=== PATIENT | female | born 1945 | race Caucasian/White ===

== ENCOUNTER 2017-01-08 10:10 | Inpatient (IN) ==
[2017-01-08] MEDS ORDERED: DUONEB (A & A) INH ONE ×2 (10:46→10:47)
[2017-01-08] MEDS ORDERED: LABETALOL IV ONE ×2 (10:47→12:17)
[2017-01-08] MEDS ORDERED: NS 500 ML ONE (10:50)
[2017-01-08] MEDS ORDERED: NS 500 ML IV ONE (10:50)
--- NOTE | 2017-01-08 11:10 | EKG Report ---
Test Performed on : 01/08/2017 11:05:51 AM Test Reason : SOB Blood Pressure : / mmHG Vent. Rate : 108 BPM Atrial Rate : 108 BPM P-R Int : 130 ms QRS Dur : 072 ms QT Int : 340 ms P-R-T Axes : 080 -21 090 degrees QTc Int : 455 ms Sinus tachycardia. Right atrial enlargement Left ventricular hypertrophy with repolarization abnormality Cannot rule out Septal infarct , age undetermined Abnormal ECG No previous ECGs available Unconfirmed Result
[2017-01-08 11:18] LABS: ALLEN TEST NO; BE 5.3 mmoll (-3.0-3.0); BLOOD TYPE ARTERIAL; DRAW SITE R BRACHIAL; METHB 1.8 % (0.0-1.5); O2(CT) 17.4 mL/dL (15.0-23.0); PO2(98.6) 71 mmHg (60-100); SAMPLE BLOOD; SAO2 96.1 % (95.0-100.0); THB 13.6 g/dL (11.5-17.4); pH(98.6) 7.32 (7.35-7.45)
--- NOTE | 2017-01-08 11:19 | Diag Imaging Result Document ---
PROCEDURE NAME: CHEST-PORTABLE - 01/08/2017 PORTABLE CHEST X-RAY, 01/08/2017: COMPARISON: None. FINDINGS: The lungs are normally expanded and clear. Heart size and mediastinal contours are normal. No pneumothorax or pleural effusion. IMPRESSION: Negative exam.
[2017-01-08 11:20] LABS: MODALITY CANNULA
[2017-01-08 11:22] LABS: BASO% 0.1 % (0.0-0.8); HEMATOCRIT 42.2 % (37.0-47.0); HEMOGLOBIN 14.2 g/dL (12.0-16.0); IMM GRAN# 0.09 X1000 (0.0-0.04); IMM GRAN% 0.5 % (0.0-0.5); LYMPH# 0.37 X1000 (1.2-3.4); MANUAL DIFF NEEDED? NO; MCH 29.1 PG (27-31); MCHC 33.6 g/dL (33-37); MCV 86.5 FL (81-99); NEUT% 89.4 % (42.2-75.2); PLT 381 X1000 (130-400); RBC 4.88 XMIL (4.2-5.4)
[2017-01-08 11:22] LABS: PCO2(98.6) 65 mmHg (35-45)
[2017-01-08 11:27] LABS: INR 1.02; PROTIME 10.7 Seconds (9.2-11.7); PTT 24.6 Seconds (22.0-36.0)
[2017-01-08 11:47] LABS: URINE CULTURE NEEDED? NO; URINE MICRO REVIEW NEEDED? NO; URINE SOURCE CATH
[2017-01-08 11:50] LABS: BILIRUBIN URINE NEGATIVE (NEGATIVE); BLOOD URINE SMALL (NEGATIVE); COLOR YELLOW; GLUCOSE URINE 200 mg/dL (NEGATIVE); LEUKOCYTES URINE NEGATIVE (NEGATIVE); NITRITE URINE NEGATIVE (NEGATIVE); PROTEIN URINE 70 mg/dL (NEGATIVE); SP GRAVITY URINE 1.014; TURBIDITY URINE CLEAR (CLEAR); UR EPITHELIAL CELLS <10 /HPF (<10); URINE BACTERIA NEGATIVE /HPF; URINE RBC <10 /HPF (<10); URINE WBC <10 /HPF (<10); UROBILINOGEN URINE NORMAL (NORMAL)
[2017-01-08 11:51] LABS: AGAP 22; ALBUMIN 4.7 g/dL (3.5-5.0); ALKALINE PHOSPHATASE 100 U/L (32-104); BUN 13 mg/dL (8-22); CALCIUM 9.3 mg/dL (8.8-10.2); CHLORIDE 81 mmol/L (98-107); CK PROFILE 157 U/L (24-173); COSMO 267; GOT 34 U/L (10-30); GPT 34 U/L (10-36); MAGNESIUM 1.6 mg/dL (1.5-2.7); POTASSIUM 4.2 mmol/L (3.5-5.1); SODIUM 131 mmol/L (136-145); TCO2 28 mmol/L (25-35)
[2017-01-08 12:14] LABS: ALLEN TEST YES; BE 6.6 mmoll (-3.0-3.0); BLOOD TYPE ARTERIAL; DRAW SITE R RADIAL; METHB 1.8 % (0.0-1.5); O2(CT) 17.5 mL/dL (15.0-23.0); PCO2(98.6) 50 mmHg (35-45); PO2(98.6) 109 mmHg (60-100); SAMPLE BLOOD; SAO2 99.5 % (95.0-100.0); THB 13.1 g/dL (11.5-17.4); pH(98.6) 7.42 (7.35-7.45)
[2017-01-08 12:15] LABS: MODALITY BI PAP
[2017-01-08] MEDS ORDERED: ROCEPHIN 1 GM/NS 1 GM/50 ML IVPB IV ONE (12:18)
--- NOTE | 2017-01-08 13:23 | PROVIDER DOCUMENTATION ---
This chart was entered by Nai Pgua Scribe, acting as scribe for Amy Henderson MD. HPI-General Adult - General Chief Complaint: Fall Stated Complaint: FALL Time Seen by Provider: 01/08/17 10:25 Source: patient, EMS Allergies/Adverse Reactions: Patient Allergies Allergy/AdvReac Type Severity Reaction Status Date / Time No Known Allergies Allergy Verified 01/08/17 10:39 Home Medications: Home Medication List Medication Instructions Recorded Confirmed Last Taken Type Albuterol 2.5MG/Ipratrop 0.5MG 3 ml INH Q6H PRN PRN 01/08/17 01/08/17 01/07/17 08:30 History [Duoneb] Levothyroxine Sodium 50 mcg PO DAILY 01/08/17 01/08/17 01/07/17 08:30 History Verapamil HCl 240 mg PO BID 01/08/17 01/08/17 01/07/17 08:30 History - History of Present Illness -Gen Adult Nature of Presenting Problems: 71 y/o F presents to ED cc of fall. Pt states she had 2 bottles of wine last pm and fell in the floor . States she was unable to get up and laid in the floor all night until found this morn. Pt states she had no injury was just unable to get herself out of the floor. Pt did have urine incontinence. Pt is a COPD pt and laid in floor with no oxygen. Pt is very SOB due to no oxygen last night. Pt states she has some mild L posterior chest wall pain and aching all over. Pt is alert. Location of Pain/Injury: reports: chest (L posterior chest wall pain), generalized (aching) Pain Radiation: reports: no radiation Quality of Pain: reports: aching Severity: reports: mild Onset/Duration: reports: last night (when pt fell and laid in floor all night) Timing: reports: still present Context/Activities at Onset: reports: light activity Modifying Factors: improves with: rest, other (oxygen) Associated Symptoms: reports: shortness of breath, other (fall, L posterior chest wall pain). denies: chest pain, fever/chills, sinus congestion/drainage Similar Symptoms Previously?: No Recently seen or treated by another doctor?: No Review of Systems - Adult - REVIEW OF SYSTEMS - ADULT Constitutional: denies: chills, fever Ears, Nose, Mouth & Throat: denies: ear pain, throat pain Cardiovascular: reports: other (L posterior chest wall pain). denies: chest pain, heart murmur, palpitations Respiratory: reports: shortness of breath. denies: cough Gastrointestinal: denies: abdominal pain, diarrhea, nausea, vomiting Genitourinary: reports: incontinence. denies: discharge, frequency, urgency Musculoskeletal: denies: bone pain, back pain Neurological: denies: dizziness/vertigo, headache/migraines Past History - Adult - PAST MEDICAL HISTORY-ADULT Review of Records: reports: Old Records Reviewed, Nursing Assessment Review Cardiovascular: reports: HTN Respiratory: reports: COPD, other (home O2 req) Endocrine/Immune: reports: thyroid disorder - PRIOR SURGERIES/PROCEDURES Surgical/Procedure History: reports: other (ovary removal) - IMMUNIZATION STATUS Childhood Immunizations: See Nurse Assessment Flu Vaccine: See Nurse Assessment - SOCIAL HISTORY Smoking: greater than 1 pack/day Provider spent 3-5 mins advising pt. on dangers of tobacco.: Discussed manners to quit use, and f/u contacts for add'l counseling. Substance Use: alcohol Alcohol Use Frequency: every day (10 bottles on wine a wk and/or 6 packs of beer ) Physical Exam-General - PHYSICAL EXAM-ADULT Initial Vital Signs Reviewed: Yes - CONSTITUTIONAL General Appearance: alert, mild distress, thin - EYES Eyes: pink conjunctivae - HEAD, EARS, NOSE, MOUTH & THROAT HENMT: moist mucous membranes, normal ENT inspection - NECK Neck: full range of motion - RESPIRATORY Respiratory: decreased breath sounds (on bases), wheezing, increased rate - CARDIOVASCULAR Cardiovascular: normal peripheral pulses, tachycardia - GASTROINTESTINAL (ABDOMEN) Abdominal Exam: non tender, soft - MUSCULOSKELETAL Back Exam: normal inspection, no CVA tenderness, no vertebral tenderness, other (pt has full range of motion of all joints) - SKIN Integumentary: normal color, normal turgor, warm/dry. negative: abrasion(s) - NEUROLOGIC Neurologic: grossly normal, no motor/sensory deficits Progress - PLAN OF CARE/RESULTS Progress/Plan/Lab Results: Vital Signs - 8 hr 01/08/17 10:23 Temperature 97.4 F L Pulse Rate 107 H Respiratory Rate 26 H Blood Pressure 234/140 O2 Sat by Pulse Oximetry 95 Orders Category Date Time Status Cardiac Monitoring DIRECTED Care 01/08/17 10:45 Active Cardiac Monitoring DIRECTED Care 01/08/17 10:45 Active Oxygen Therapy- ED Nursing DIRECTED Care 01/08/17 10:45 Active Oxygen Therapy- ED Nursing DIRECTED Care 01/08/17 10:45 Active Saline Loc NOW Care 01/08/17 10:45 Active Saline Loc NOW Care 01/08/17 10:45 Active CHEST-PORTABLE [RAD] Stat Exams 01/08/17 10:47 Taken ABG [RESP] Routine Lab 01/08/17 10:47 Ordered ABG [RESP] Routine Lab 01/08/17 10:50 Ordered CBC WITH ELECTRONIC DIFF [HEME] Stat Lab 01/08/17 10:45 Uncollected CK PROFILE [SP CHEM] Stat Lab 01/08/17 10:45 Uncollected COMPREHENSIVE METABOLIC PANEL [CHEM] Stat Lab 01/08/17 10:45 Uncollected ETOH [ALCOHOL BLOOD] Stat Lab 01/08/17 10:53 Uncollected MAGNESIUM [CHEM] Stat Lab 01/08/17 10:45 Uncollected PRO B-NATRIURETIC PEPTIDE Stat Lab 01/08/17 10:45 Uncollected PROTIME WITH INR [COAG] Stat Lab 01/08/17 10:45 Uncollected PTT [COAG] Stat Lab 01/08/17 10:45 Uncollected TROPONIN T Stat Lab 01/08/17 10:45 Uncollected URINALYSIS W/POSS RFLX CULT [URINALYSIS] Stat Lab 01/08/17 10:47 Uncollected 0.9% Sodium Chloride Inj [Ns] 500 ml Med 01/08/17 10:50 Discontinued .ROUTE As Directed 0.9% Sodium Chloride Inj [Ns] 500 ml Med 01/08/17 10:50 Active IV 999 mls/hr Albuterol 2.5MG/Ipratrop 0.5MG [Duoneb (A & A)] Med 01/08/17 10:46 Discontinued 3 ml INH NOW ONE Albuterol 2.5MG/Ipratrop 0.5MG [Duoneb (A & A)] Med 01/08/17 10:47 Discontinued 3 ml INH NOW ONE Labetalol Med 01/08/17 10:47 Discontinued 10 mg IV NOW ONE Aerosol Treatments Routine Oth 01/08/17 10:46 Active Aerosol Treatments Routine Oth 01/08/17 10:48 Active Aerosol Treatments Stat Oth 01/08/17 10:46 Active Aerosol Treatments Stat Oth 01/08/17 10:48 Active EKG [EKG] Stat Ther 01/08/17 10:45 Ordered EKG [EKG] Stat Ther 01/08/17 10:45 Ordered PLAN: LABS , FLUIDS, BT, EKG , MONITOR PT PT WAS PLACED ON BYPAP Result Diagrams: 01/08/17 11:01 01/08/17 11:01 - REASSESSMENT Reassessment #1 Time Reassessed: 12:30 Status: unchanged (family and pt notified of going to be admitted.) - XRAY 1 XRAY: Bilateral XRAY Study: Chest Impression: Normal XRAY Interpretation: negative -radiologist - CONSULTS/PCP/HOSPITALIST Notification #1 *Consult/PCP/Hospitalist*: (hospitalist) Time Discussed: 12:52 Consult Disposition: Admit Departure - Departure Time of Disposition Decision: 11:50 DIAGNOSIS: COPD exacerbation Disposition: ADMITTED INPATIENT 09 Certified Medical Emergency: Emergent Condition: Stable This chart was documented by the indicated scribe, (Nai Puga, Gee) and accurately reflects the services I performed and decisions made by me, Amy Henderson MD, as attested by the provider's signature.
[2017-01-08 14:41] LABS: HEMOGLOBIN A1C 4.6 % (4.8-6.0)
[2017-01-08 15:16] LABS: MAGNESIUM 1.6 mg/dL (1.5-2.7)
[2017-01-08] MEDS: DUONEB (A & A) INH SCH ×3 (15:16→22:31)
[2017-01-08 15:35] LABS: FREE T4 1.87 ng/dL (0.93-1.70)
--- NOTE | 2017-01-08 16:00 | HISTORY AND PHYSICAL ---
PRIMARY CARE PHYSICIAN: None. CHIEF COMPLAINT: Found on the floor. HISTORY OF PRESENT ILLNESS: Mrs. Singh is a 71-year-old female with a history of COPD on 27/04 home O2, hypothyroidism and hypertension who apparently was drinking heavily yesterday. She reports drinking 2 bottles of wine and either passing out or falling on the floor, she is unclear which. She was unable to get up when she did come to but she remained in the floor for multiple hours. She was found by her brother who is also her landlord this morning at around 9 a.m. She denies any chest pain, but states that she went without her oxygen all night so she is quite short of breath. She denies any chills but reports subjective fever. She has no abdominal pain. She has not been throwing up. No congestion. When her brother found her he called 911 and the patient was sent here where she had labs and diagnostics done. Her chest x-ray did not show anything acute. Her lab data shows some mild hyponatremia and elevated liver function tests as well as leukocytosis with a white count of 18. Blood cultures were drawn and the patient was given a gram of Rocephin for COPD exacerbation. She is currently on BiPAP for hypoxemic respiratory failure and she will be going to the ICU for further treatment and evaluation. PAST MEDICAL HISTORY: 1. COPD on home O2. 2. Hypertension. 3. Hypothyroidism. 4. Nicotine dependence. 5. Alcohol dependence. SURGICAL HISTORY: x2 and unilateral oophorectomy. SOCIAL HISTORY: Patient smokes 6-8 cigarettes a day. This is down from a pack a day. She reports drinking 2 glasses of wine a day but yesterday for some unknown reason she states that she had 2 bottles of wine but she does not drink 2 bottles of wine daily on a regular basis. She denies illicit drug use. She is . She has 1 son who lives in [place]. FAMILY HISTORY: Noncontributory. REVIEW OF SYSTEMS: Fourteen-point review of systems is obtained and found to be negative with the exception of the HPI. ALLERGIES: No known drug allergies. HOME MEDICATIONS: Albuterol every 6 hours as needed. Levothyroxine 50 mcg daily. Verapamil 240 mg p.o. b.i.d. PHYSICAL EXAMINATION: VITAL SIGNS: Blood pressure is 167/110, heart rate is 94, respiratory rate 21, O2 saturation 97% on BiPAP, temperature is 97.4 degrees. GENERAL: This is a frail, cachectic and disheveled appearing 71-year-old, female, lying in hospital bed in no acute distress. NEUROLOGIC: The patient is awake. She is somewhat sleepy but opens her eyes to verbal stimulus and follows commands without any apparent focal deficits. HEENT: Head is atraumatic and normocephalic. Her right pupil is equal, round, and reactive to light. Her left pupil is round but more sluggish to light than the right. Oral mucosa is dry and her trachea is midline. Oropharynx is clear. Trachea is midline. CHEST: Coarse bilaterally with occasional expiratory wheezes and crackles. CV: Regular rate and rhythm. S1, S2 is noted. No murmurs. GI: Diffuse tenderness to palpation but no distention or rigidity. Bowel sounds are hypoactive. EXTREMITIES: Without edema, clubbing or cyanosis. BACK: C-spine and back: Cervical thoracic and lumbar spine is in alignment. There are no obvious deformities or stepoffs. She does have pain to her lumbar spine region and thoracic spine region. DIAGNOSTIC DATA: Chest x-ray does not show anything acute. EKG shows sinus tach without acute ST- T abnormalities. WBC 18.86, hemoglobin 14.2, hematocrit 42.2, platelet count 381,000. INR 1.02. Recent ABG on BiPAP pH 7.42, CO2 50, O2 109. Bicarb 30. Sodium 131, potassium 4.2, chloride 81, CO2 28, anion gap 22, BUN 13, creatinine 0.4. Glucose 179. Calcium 9.3, magnesium 1.6. Bilirubin 1.1. AST 34, ALT 34, alkaline phosphatase 100. Troponin CK is negative. ProBNP 450. Urinalysis shows 200 glucose, 20 ketones and small blood. Toxicology and alcohol level was 0. ASSESSMENT/PLAN: 1. Toxic encephalopathy/fall: Unclear to the exact nature of her fall. Given that her memory is poor, we are going to go ahead and check a head and C-spine CT as well as a lumbar x-ray. We will also check a CT of the chest, abdomen and pelvis. More than likely the patient had alcohol intoxication and subsequently passed out. She could also very well be hypoxic causing her to have an altered sensorium. We will continue to treat her for respiratory failure. We will follow all of the imaging and monitor her neuro status closely. 2. SIRS: Patient meets criteria with leukocytosis, tachycardia and tachypnea. Initial lactic acid on ABG was 2.3. We are going to recheck a serum lactic acid now. Blood cultures have been obtained and we are starting Rocephin for COPD exacerbation but she does not seem to have any overt nidus of infection at this time. We will follow her cultures and monitor closely. 3. Hypovolemic hyponatremia: We are going to check urine studies and continue IV fluids. 4. Chronic obstructive pulmonary disease exacerbation: Blood cultures have been obtained. We will continue antibiotics, breathing treatments and aggressive pulmonary toilet. We will also add some steroids. 5. Elevated liver function tests: Likely related to her alcohol but we will check a hepatitis panel and drug screen. Are also checking a CT of the abdomen. 6. Hypothyroidism: Continue her Synthroid and check thyroid function. 7. Alcohol and nicotine dependence: Patient has been highly advised to quit drinking and smoking. We will write a nicotine patch and monitor for withdrawal/DTs. Add p.r.n. Ativan for withdrawal symptoms. 8. Hypertensive urgency: Cardene drip has been added. We will titrate this to an adequate blood pressure and then switch over to p.o. medications. 9. DVT prophylaxis will be added with Lovenox pending a negative head CT and negative imaging. Further recommendations to follow. Dictated by KOJO Montoya for Sabrina Cruz MD cc: KOJO Montoya MD
--- NOTE | 2017-01-08 16:22 | ED EKG INTERP ---
This chart was entered by Nai Puga Scribe, acting as scribe for Amy Henderson MD. EKG Interpretation - EKG Time of EKG reading by physician:: 11:05 EKG Read and Signed by:: Amy Henderson EKG Interpretation (*Must complete 3 of following elements*): Abnormal Rate: 108 Rhythm: sinus tachy [place]: left (atrial enlargment) [place] Interval: normal ST Wave: normal Comments: cannot rule out septal infarct This chart was documented by the indicated scribe, (Nai Puga Scribe) and accurately reflects the services I performed and decisions made by me, Amy Henderson MD, as attested by the provider's signature.
--- NOTE | 2017-01-08 16:29 | Diag Imaging Result Document ---
PROCEDURE NAME: HEAD/C-SPINE W/O CONTRAST - 01/08/2017 CT OF THE HEAD WITHOUT CONTRAST: FINDINGS: There are minimal patchy lucencies in the white matter around the frontal horns. There is no evidence of bleed or mass effect. No other abnormal extra-axial fluid collections are present. The calvarium is intact. The paranasal sinuses are clear. IMPRESSION: No evidence of acute intracranial disease. Chronic microvascular white matter changes. CT OF THE CERVICAL SPINE: FINDINGS: There is some curvature of the cervical spine with convexity to the left. Severe hypertrophic facet disease is present at the C3-4, 4-5, and 5-6 levels on the right side and at the C4-5 level on the left. There is posterior osteophyte formation at the C7-T1 level. No prevertebral soft tissue swelling, fracture or subluxation is present. IMPRESSION: Facet arthropathy and degenerative disk disease. No evidence of acute bony disease.
--- NOTE | 2017-01-08 17:00 | Diag Imaging Result Document ---
PROCEDURE NAME: ELBOW COMPLETE RIGHT - 01/08/2017 PLAIN RADIOGRAPH OF THE RIGHT ELBOW 3 VIEWS: COMPARISON: None available. FINDINGS: There is a tiny osteophyte seen at the proximal ulna anteriorly on the lateral view. There is a small enthesophyte at the lateral epicondyle. There is no discrete fracture, dislocation, or intrinsic osseous lesion, otherwise. There is, however, a significant soft tissue edema about the elbow and suggestion of a joint effusion. IMPRESSION: Soft tissue edema and suggestion of an elbow joint effusion. No definite acute osseous abnormality.
--- NOTE | 2017-01-08 17:04 | Diag Imaging Result Document ---
PROCEDURE NAME: ABD/PELVIS/PULM ARTERIES - 01/08/2017 CT OF THE CHEST WITH INTRAVENOUS CONTRAST: FINDINGS: There are no filling defects in the pulmonary arteries. There is atherosclerotic calcification throughout the thoracic aorta. There is no evidence of dissection. The aorta is not distended. There is no evidence of significant adenopathy. There are coronary atherosclerotic calcifications. The left ventricle is slightly enlarged. No significant adenopathy is present. There are some mild emphysematous changes. There is mild consolidation present in the posterior left upper lobe, particularly around image 60. IMPRESSION: 1. COPD. 2. Left upper lobe pneumonia. CT OF THE ABDOMEN WITH INTRAVENOUS CONTRAST: FINDINGS: There are calcifications in the aorta and at the ostia of both renal arteries. There is no evidence of abdominal aortic aneurysm. The inferior mesenteric artery is not clearly patent. There are calcifications in the proximal superior mesenteric artery. The celiac and superior mesenteric artery are patent, however. The liver is normal in appearance. There are granulomata in the spleen. The adrenal glands appear somewhat hyperplastic, and there is a nodule arising from the left adrenal gland measuring 19 mm in diameter. This may represent an adenoma, but further evaluation with noncontrast study or MRI would be desirable. There are cysts in the kidneys. There is no evidence of hydronephrosis. The pancreas is somewhat atrophic in appearance. There is some gas and stool throughout the colon. This is particularly notable in the right colon. No evidence of significant adenopathy is present. There are no gallstones. CT OF THE PELVIS WITH INTRAVENOUS CONTRAST: FINDINGS: There is a Adams catheter in the bladder. There is gas and stool in the rectum. The uterus is displaced to the right of the pelvis, and there are multiple leiomyomata arising from the uterus. Some of these are densely calcified. One apparent such mass is present directly posterior to the external iliac vessels and measures 2.7 cm in diameter. The ovary is not dependently imaged. There is no evidence of free fluid. There is some deformity of the ischial pubic ramus on the left suggesting a previous fracture. The ischial tuberosity is somewhat fragmented. There are no previous studies. There is generalized osteopenia. There are degenerative disk changes in the lumbar spine. IMPRESSION: 1. Severe constipation. 2. Atherosclerosis. 3. Fibroid uterus 4. Left ischial pubic ramus fracture of uncertain age.
[2017-01-08] MEDS ORDERED: ZOFRAN IV PRN (17:05)
--- NOTE | 2017-01-08 17:05 | Diag Imaging Result Document ---
PROCEDURE NAME: LUMBAR SPINE 2-VIEWS - 01/08/2017 AP AND CROSS-TABLE LATERAL RADIOGRAPH OF THE LUMBAR SPINE 2 VIEWS: COMPARISON: None available. FINDINGS: The bones appear to be osteopenic. There is facet arthropathy at multiple lumbar levels. There are small marginal endplate osteophytes at multiple levels as well. There is mild loss of disk space height at L5-S1. There is mild dextrocurvature of the lumbar spine. There is no evidence of fracture, subluxation, or intrinsic osseous lesion, otherwise. There is aortic atherosclerotic calcification. IMPRESSION: Degenerative changes as described. No definite acute osseous abnormality by plain radiograph.
[2017-01-08 17:27] LABS: UR AMPHETAMINES QUAL NONE DETECTED (NONE DETECT); UR BARBITUATES QUAL NONE DETECTED (NONE DETECT); UR BENZODIAZEPIN QUAL NONE DETECTED (NONE DETECT); UR CANNABINOIDS QUAL NONE DETECTED (NONE DETECT); UR COCAINE QUAL NONE DETECTED (NONE DETECT); UR METHADONE QUAL NONE DETECTED (NONE DETECT); UR OPIATES QUAL NONE DETECTED (NONE DETECT); UR OXYCODONE QUAL NONE DETECTED (NONE DETECT); UR PCP QUAL NONE DETECTED (NONE DETECT)
[2017-01-08 17:28] LABS: UR CREAT RANDOM 46.1 mg/dL (11-20)
[2017-01-08] MEDS: M.V.I.-12 10 ML, FOLIC ACID 1 MG, MAGNESIUM SULFATE 1 GM, THIAMINE 100 MG in NS 1,000 ML IV SCH (17:59)
--- NOTE | 2017-01-08 18:05 | ECHO REPORT ---
ORDER DATE: 01/08/2017 INTERPRETING PHYSICIAN: Dr. Alvarado CLINICAL INDICATIONS: Piriz[age]gr[age]-old female, hypertensive urgency. M-MODE MEASUREMENTS: Right ventricle: 3.3 cm. Left ventricle end diastole: 3.3 cm. Left ventricle end systole: 2.5 cm. Posterior wall: 1.1 cm. Interventricular septum: 1.2 cm. Left atrium: 2.6 cm. Aortic root: 3.3 cm. SUMMARY OF 2-DIMENSIONAL IMAGING: Left ventricular function appears to be normal. Study was done off axis. The Doppler evaluation of mitral valve is limited because of that Diastolic function cannot be evaluated here. The left ventricular function is probably in the order of 60 to 65%. Aortic valve looks normal. Color flow mapping unremarkable. The pulmonic valve also appears to be grossly normal. Color flow mapping unremarkable. Tricuspid valve shows mild degree of regurgitation. Pulmonary pressure 33 mmHg. No pericardial effusion, masses, or thrombus. Epicardial fat pad noted. Inferior vena cava is not dilated. Clinical correlation is recommended. cc: MD Sabrina Glynn MD [facility]
[2017-01-08] MEDS: NICODERM PATCH TD SCH (18:07)
[2017-01-08] MEDS: SOLU-MEDROL IV SCH (18:07)
[2017-01-08] MEDS: CARDENE 20 MG/NS 20 MG/200 ML PIGGYBACK IV SCH (19:21)
[2017-01-08] MEDS: ZITHROMAX 500 MG/NS 500 MG/250 ML IVPB IV SCH (20:32)
[2017-01-08] MEDS: DULCOLAX PR SCH (20:37)
[2017-01-09] MEDS: SOLU-MEDROL IV SCH ×3 (01:56→17:00)
[2017-01-09] MEDS: CARDENE 20 MG/NS 20 MG/200 ML PIGGYBACK IV SCH (01:56)
[2017-01-09] MEDS: DUONEB (A & A) INH SCH ×5 (02:48→19:22)
[2017-01-09 04:09] LABS: ALLEN TEST YES; BE 6.5 mmoll (-3.0-3.0); BLOOD TYPE ARTERIAL; DRAW SITE R RADIAL; METHB 1.5 % (0.0-1.5); O2(CT) 14.5 mL/dL (15.0-23.0); PCO2(98.6) 45 mmHg (35-45); PO2(98.6) 78 mmHg (60-100); SAMPLE BLOOD; THB 10.9 g/dL (11.5-17.4); pH(98.6) 7.45 (7.35-7.45)
[2017-01-09 04:10] LABS: MODALITY CANNULA
[2017-01-09 05:42] LABS: HEMATOCRIT 32.1 % (37.0-47.0); HEMOGLOBIN 10.7 g/dL (12.0-16.0); IMM GRAN# 0.02 X1000 (0.0-0.04); IMM GRAN% 0.2 % (0.0-0.5); LYMPH# 0.18 X1000 (1.2-3.4); LYMPH% 2.1 % (20.5-51.1); MANUAL DIFF NEEDED? YES; MCHC 33.3 g/dL (33-37); MONO# 0.24 X1000 (0.11-0.59); MONO% 2.8 % (1.7-9.3); MPV 9.9 FL (7.4-10.4); NEUT% 94.9 % (42.2-75.2); PLT 270 X1000 (130-400); RBC 3.69 XMIL (4.2-5.4)
[2017-01-09 05:58] LABS: AGAP 12; BUN 21 mg/dL (8-22); CALCIUM 8.8 mg/dL (8.8-10.2); CHLORIDE 94 mmol/L (98-107); COSMO 273; SODIUM 134 mmol/L (136-145); TCO2 28 mmol/L (25-35)
[2017-01-09 06:40] LABS: BANDS 8 % (0-1); LYMPHS 4 % (21-51); MONO 4 % (1-9)
[2017-01-09] MEDS: MUCOMYST 20% INH SCH ×3 (07:38→19:22)
[2017-01-09] MEDS ORDERED: SYNTHROID PO SCH (09:00)
[2017-01-09] MEDS: NORVASC PO SCH ×2 (09:19→20:37)
[2017-01-09] MEDS: NICODERM PATCH TD SCH (09:20)
[2017-01-09] MEDS ORDERED: LABETALOL IV PRN (09:50)
[2017-01-09 10:57] LABS: HEPATITIS PROFILE ACUTE SEE COMMENTS
[2017-01-09] MEDS: ISOPTIN SR PO SCH ×2 (11:25→20:37)
[2017-01-09] MEDS: ROCEPHIN 1 GM/NS 1 GM/50 ML IVPB IV SCH (11:26)
[2017-01-09] MEDS ORDERED: BLISTEX MEDICATED BERRY LIP BALM TOP PRN (13:30)
--- NOTE | 2017-01-09 15:31 | CONSULTATION ---
DATE OF CONSULTATION: 01/09/2017 REASON FOR CONSULTATION: Pubic ramus fracture. HISTORY OF PRESENT ILLNESS: Ms. Singh is a 71-year-old, white female who apparently was drinking heavily yesterday, reporting that she was drinking 2 bottles of wine and either passing out or falling on the floor, she is unclear of which. She is unable to get up and she remained on the floor for multiple hours. She was found by her brother and she was brought to the emergency department and images were obtained which revealed a left ischial pubic ramus fracture. We were asked to further evaluate. PAST MEDICAL HISTORY: COPD. Hypertension. Hypothyroidism. Nicotine dependence. Alcohol dependence. SURGICAL HISTORY: x2 and unilateral oophorectomy. SOCIAL HISTORY: Patient smokes 6-8 cigarettes a day. She reports drinking 2 glasses of wine a day, but yesterday for some unknown reason she states she had two bottles of wine. She denies illicit drug use. FAMILY HISTORY: Noncontributory. REVIEW OF SYSTEMS: Ten point review of systems was obtained and found to be negative with the exception of the HPI. ALLERGIES: No known drug allergies. HOME MEDICATIONS: Albuterol every 6 hours as needed. Levothyroxine 50 mcg daily. Verapamil 240 mg p.o. b.i.d. PRIMARY CARE PROVIDER: None. PHYSICAL EXAMINATION: General: The patient is awake. She is lying in bed. She is alert and oriented and able to answer questions appropriately. Musculoskeletal: The patient had pain with movement of her hip and pain to palpation of her pelvis on the left side. Neurologic: Intact. She has good sensation in her bilateral extremities. Extremities: Brisk capillary refill and 2+ pedal pulse. ASSESSMENT: Left ischial pubic ramus fracture that is stable. PLANS: She is weightbearing as tolerated. Mobilize her with assistive devices as necessary and assist with symptomatic pain management. We recommend for her to go to a rehabilitation facility after discharge from the hospital and to have her follow up with Bay Harvey MD in about 1 month. Dictated by MINAL Dangelo for Jayy Harvey MD cc: MINAL Dangelo MD
[2017-01-09] MEDS: M.V.I.-12 10 ML, FOLIC ACID 1 MG, MAGNESIUM SULFATE 1 GM, THIAMINE 100 MG in NS 1,000 ML IV SCH (18:00)
--- NOTE | 2017-01-09 19:44 | PROGRESS NOTE ---
DATE: 01/09/2017 SUBJECTIVE: The patient states that she feels a lot better today. No acute events were noted overnight. The patient states that her shortness of breath is a little bit better today. OBJECTIVE: Vital Signs: Temperature 98 degrees, blood pressure 123/71, heart rate 97, respirations 16, O2 saturations 98% on 3 L nasal cannula. General: This is a chronically ill- appearing, elderly female, lying comfortably in bed, in no acute distress. Head : Normocephalic, atraumatic. Heart: S1, S2 normal. Regular rate and rhythm. Lungs: Mild expiratory wheezes. No crackles. No rales. Abdomen: Positive bowel sounds. Soft, nontender, nondistended. Extremities: No edema. No cyanosis. No calf tenderness. Neurologic: The patient is awake and alert. LABS: White blood cell count 8.6, hemoglobin 10, hematocrit 32, platelets 270, 000. Sodium 134, potassium 4, chloride 94, CO2 28, BUN 21, creatinine 0.3, glucose 131, calcium 8.8, troponin less than 0.01. ASSESSMENT AND PLAN: 1. Metabolic encephalopathy. This appears to have resolved. The patient appears to be back to her baseline. 2. Acute chronic obstructive pulmonary disease exacerbation. Continue on bronchodilator therapy, IV steroids and IV antibiotic therapy. The patient is on home O2. 3. Anemia of chronic disease. The patient's hemoglobin and hematocrit is stable. 4. Left upper lobe pneumonia. Continue on the current antibiotic regimen. We will add incentive spirometry. 5. Left ischial pubic ramus fracture. The Orthopedic service has been consulted for further recommendations. 6. Right elbow effusion. We will await records from the orthopedic surgeon. 7. Hypothyroidism. The tsh is low and the free t4 is high. Will hold the synthroid at this time. 8. Tobacco dependence. Continue on the NicoDerm patch. 9. Accelerated hypertension. The patient has been weaned off the Cardene drip. Her verapamil has been restarted. 10. Deep vein thrombosis prophylaxis. We will start the patient on Lovenox. cc: MD DIMAS Romo
[2017-01-09] MEDS: DULCOLAX PR SCH (20:36)
[2017-01-09] MEDS: ZITHROMAX 500 MG/NS 500 MG/250 ML IVPB IV SCH (20:36)
[2017-01-09] MEDS: LOVENOX SUBQ SCH (20:36)
[2017-01-09] MEDS: ATIVAN IV PRN (20:37)
[2017-01-10] MEDS: DUONEB (A & A) INH SCH ×6 (00:10→19:30)
[2017-01-10] MEDS: SOLU-MEDROL IV SCH ×3 (03:08→17:51)
[2017-01-10] MEDS: PROTONIX PO SCH (06:45)
[2017-01-10 06:56] LABS: HEMATOCRIT 31.9 % (37.0-47.0); HEMOGLOBIN 10.2 g/dL (12.0-16.0); IMM GRAN# 0.02 X1000 (0.0-0.04); IMM GRAN% 0.2 % (0.0-0.5); LYMPH# 0.17 X1000 (1.2-3.4); LYMPH% 1.3 % (20.5-51.1); MANUAL DIFF NEEDED? YES; MCH 28.5 PG (27-31); MCV 89.1 FL (81-99); MONO# 0.49 X1000 (0.11-0.59); MONO% 3.8 % (1.7-9.3); MPV 9.5 FL (7.4-10.4); NEUT% 94.7 % (42.2-75.2); PLT 268 X1000 (130-400); RBC 3.58 XMIL (4.2-5.4)
[2017-01-10 07:02] LABS: AGAP 9; BUN 31 mg/dL (8-22); CALCIUM 9.6 mg/dL (8.8-10.2); CHLORIDE 99 mmol/L (98-107); COSMO 283; POTASSIUM 3.8 mmol/L (3.5-5.1); SODIUM 138 mmol/L (136-145); TCO2 30 mmol/L (25-35)
[2017-01-10] MEDS: SPIRIVA INH SCH (07:21)
[2017-01-10] MEDS: MUCOMYST 20% INH SCH (07:21)
[2017-01-10 08:06] LABS: LYMPHS 9 % (21-51); MONO 6 % (1-9)
[2017-01-10] MEDS: ATIVAN IV PRN ×2 (11:36→17:52)
[2017-01-10] MEDS: NORVASC PO SCH ×2 (11:37→21:09)
[2017-01-10] MEDS: NICODERM PATCH TD SCH (11:38)
[2017-01-10] MEDS: ISOPTIN SR PO SCH ×2 (11:38→21:08)
[2017-01-10] MEDS: ROCEPHIN 1 GM/NS 1 GM/50 ML IVPB IV SCH (11:39)
--- NOTE | 2017-01-10 15:11 | PROGRESS NOTE ---
DATE: 01/10/2017 SUBJECTIVE: The patient states she feels okay this morning. She does have a productive cough. Her shortness of breath is about the same. OBJECTIVE: Vital signs: Temperature is 98.1, blood pressure 151/76, heart rate 95, respirations 16, O2 saturation is 98% on 3 L nasal cannula. General: This is an elderly female lying comfortably in bed, in no acute distress. Head normocephalic and atraumatic. Heart: S1 and S2 normal. Regular rate and rhythm. Lungs: Coarse breath sounds bilaterally with mild expiratory wheezes. Abdomen: Positive bowel sounds. Soft, nontender and nondistended. Extremities: No edema. No cyanosis. No calf tenderness. Neurologic: The patient is alert and oriented x3. DIAGNOSTIC DATA: White blood cell count is 12, hemoglobin 10, hematocrit 31, platelets 268. Sodium is 138, potassium 3.8, chloride 99, CO2 is 30, BUN is 31, creatinine 0.3, glucose 103. ASSESSMENT AND PLAN: 1. Acute chronic obstructive pulmonary disease exacerbation. Continue on IV steroids, bronchodilator therapy and IV antibiotics. 2. Metabolic encephalopathy, resolved. 3. Anemia of chronic disease. Stable. 4. Left upper lobe pneumonia. Continue on IV antibiotic therapy plus bronchodilator therapy and incentive spirometer. 5. Left ischial pubic ramus fracture. Management as per the orthopedic surgeon. 6. Hypothyroidism. The patient's TSH is low, and the free T4 is high. We will hold the Synthroid at this time. 7. Tobacco dependence. Continue on the NicoDerm patch. 8. Hypertension. Controlled. Continue on the current antihypertensive therapy. 9. DVT prophylaxis. Continue on Lovenox. 10.We will discontinue the patient's Adams catheter. Continue with physical therapy. cc: Sabrina Cruz MD
[2017-01-10] MEDS: M.V.I.-12 10 ML, FOLIC ACID 1 MG, MAGNESIUM SULFATE 1 GM, THIAMINE 100 MG in NS 1,000 ML IV SCH (17:52)
[2017-01-10] MEDS: ZITHROMAX 500 MG/NS 500 MG/250 ML IVPB IV SCH (21:08)
[2017-01-10] MEDS: LOVENOX SUBQ SCH (21:09)
[2017-01-10] MEDS: MIRALAX PO SCH (21:09)
[2017-01-10] MEDS: DULCOLAX PR SCH (21:09)
[2017-01-11] MEDS: SOLU-MEDROL IV SCH ×3 (00:43→17:55)
[2017-01-11] MEDS: PROTONIX PO SCH (06:00)
[2017-01-11] MEDS: DUONEB (A & A) INH SCH ×6 (06:03→23:42)
[2017-01-11 07:03] LABS: AGAP 11; BUN 27 mg/dL (8-22); CALCIUM 9.1 mg/dL (8.8-10.2); CHLORIDE 100 mmol/L (98-107); COSMO 284; POTASSIUM 3.7 mmol/L (3.5-5.1); SODIUM 139 mmol/L (136-145); TCO2 28 mmol/L (25-35)
[2017-01-11] MEDS: MUCOMYST 20% INH SCH ×2 (07:25→19:36)
[2017-01-11] MEDS: SPIRIVA INH SCH (07:25)
[2017-01-11 07:26] LABS: FREE T4 0.7 ng/dL (0.93-1.70)
[2017-01-11] MEDS: ATIVAN IV PRN ×2 (07:34→18:10)
[2017-01-11 09:29] LABS: ALLEN TEST YES; BE 8.5 mmoll (-3.0-3.0); BLOOD TYPE ARTERIAL; DRAW SITE R RADIAL; METHB 1.3 % (0.0-1.5); O2(CT) 13.2 mL/dL (15.0-23.0); PO2(98.6) 68 mmHg (60-100); SAMPLE BLOOD; SAO2 97.5 % (95.0-100.0); pH(98.6) 7.37 (7.35-7.45)
[2017-01-11 09:30] LABS: MODALITY CANNULA
[2017-01-11 09:33] LABS: PCO2(98.6) 61 mmHg (35-45)
[2017-01-11] MEDS: ISOPTIN SR PO SCH ×2 (10:35→19:59)
[2017-01-11] MEDS: NICODERM PATCH TD SCH (10:35)
[2017-01-11] MEDS: MIRALAX PO SCH ×2 (10:35→19:59)
[2017-01-11] MEDS: NORVASC PO SCH ×2 (10:35→20:00)
[2017-01-11] MEDS: ROCEPHIN 1 GM/NS 1 GM/50 ML IVPB IV SCH (14:42)
--- NOTE | 2017-01-11 15:27 | PROGRESS NOTE ---
DATE: 01/11/2017 SUBJECTIVE: The patient was noted to be sleepy and lethargic this morning. An ABG was done that revealed a pCO2 of 61. OBJECTIVE: Vital Signs: Temperature 98.3 degrees, blood pressure 129/72, heart rate 102, respirations 16, O2 saturations 95% on 3 L nasal cannula. General: This is an elderly female lying in bed in no acute distress. Head: Normocephalic, atraumatic. Heart: S1, S2. Normal. Regular rate and rhythm. Lungs: Equal air entry bilaterally. No crackles. No rales. Abdomen: Positive bowel sounds. Soft, nontender, nondistended. Extremities: No edema. No cyanosis. No calf tenderness. Neurologic: The patient is lethargic, but will awaken when her name is called. She is able to move all 4 extremities. LABORATORY: ABG, pH of 7.37, PCO2 61, PO2 68, bicarb 31, sodium 139, potassium 3.7, chloride 100, CO2 28, BUN 27, creatinine 0.3, glucose 129. ASSESSMENT AND PLAN: 1. Acute chronic obstructive pulmonary disease exacerbation with hypercapnia. We will place the patient on BiPAP. Continue on IV steroids, bronchodilator therapy and IV antibiotics. 2. Metabolic encephalopathy. The patient's pCO2 was elevated at 60. We will continue to monitor for improvement. 3. Anemia of chronic disease. Stable. 4. Left upper lobe pneumonia. Continue on IV antibiotic therapy, plus bronchodilator therapy. 5. Left ischial pubic ramus fracture. Management as per the orthopedic surgeon. 6. Hypothyroidism. The patient's thyroid stimulating hormones and free T4 are both low. We will continue to hold the Synthroid at this time. 7. Tobacco dependence. The patient has been counseled about smoking cessation. Continue on the NicoDerm patch. 8. Hypertension. Controlled. 9. Deep vein thrombosis prophylaxis. Continue on Lovenox. cc: Sabrina Cruz MD
[2017-01-11] MEDS: M.V.I.-12 10 ML, FOLIC ACID 1 MG, MAGNESIUM SULFATE 1 GM, THIAMINE 100 MG in NS 1,000 ML IV SCH (17:55)
[2017-01-11] MEDS: ZITHROMAX 500 MG/NS 500 MG/250 ML IVPB IV SCH (19:59)
[2017-01-11] MEDS: LOVENOX SUBQ SCH (20:00)
[2017-01-11] MEDS: DULCOLAX PR SCH (20:00)
[2017-01-12] MEDS: SOLU-MEDROL IV SCH ×3 (00:42→18:16)
[2017-01-12] MEDS: ATIVAN IV PRN ×2 (02:14→16:55)
[2017-01-12] MEDS: DUONEB (A & A) INH SCH ×6 (03:00→22:50)
[2017-01-12 05:01] LABS: ALLEN TEST YES; BE 9.7 mmoll (-3.0-3.0); BLOOD TYPE ARTERIAL; DRAW SITE R RADIAL; METHB 1.8 % (0.0-1.5); O2(CT) 14.2 mL/dL (15.0-23.0); PO2(98.6) 115 mmHg (60-100); SAMPLE BLOOD; SAO2 99.4 % (95.0-100.0); THB 10.4 g/dL (11.5-17.4); pH(98.6) 7.44 (7.35-7.45)
[2017-01-12 05:02] LABS: MODALITY BI PAP
[2017-01-12 05:11] LABS: PCO2(98.6) 52 mmHg (35-45)
[2017-01-12 06:26] LABS: HEMATOCRIT 31.7 % (37.0-47.0); MCHC 31.5 g/dL (33-37); MCV 91.9 FL (81-99); MPV 9.6 FL (7.4-10.4); RBC 3.45 XMIL (4.2-5.4)
[2017-01-12 06:30] LABS: AGAP 7; BUN 22 mg/dL (8-22); CALCIUM 8.8 mg/dL (8.8-10.2); CHLORIDE 99 mmol/L (98-107); COSMO 281; POTASSIUM 3.2 mmol/L (3.5-5.1); SODIUM 139 mmol/L (136-145); TCO2 33 mmol/L (25-35)
[2017-01-12] MEDS: PROTONIX PO SCH (06:49)
[2017-01-12] MEDS: SPIRIVA INH SCH (07:34)
[2017-01-12] MEDS: MUCOMYST 20% INH SCH ×2 (07:35→19:40)
--- NOTE | 2017-01-12 09:29 | Diag Imaging Result Document ---
PROCEDURE NAME: CHEST-PORTABLE - 01/12/2017 AP PORTABLE CHEST AT 0810 HOURS: FINDINGS: There is a right pleural effusion which has increased since 01/08/2017. The inspiration is generally less optimal than on the previous study. Otherwise, there has been no significant change. IMPRESSION: Right pleural effusion.
[2017-01-12] MEDS: ISOPTIN SR PO SCH ×2 (10:46→20:16)
[2017-01-12] MEDS: NORVASC PO SCH ×2 (10:46→20:16)
[2017-01-12] MEDS: NICODERM PATCH TD SCH (10:46)
[2017-01-12] MEDS: MIRALAX PO SCH ×2 (10:46→20:16)
[2017-01-12] MEDS: ROCEPHIN 1 GM/NS 1 GM/50 ML IVPB IV SCH (12:55)
[2017-01-12] MEDS ORDERED: LASIX IV ONE (16:05)
[2017-01-12] MEDS ORDERED: LASIX IV SCH (16:15)
--- NOTE | 2017-01-12 16:37 | PROGRESS NOTE ---
DATE: 01/12/2017 SUBJECTIVE: The patient has no focal complaints. Very weak, just lying in bed. No other major complaints. OBJECTIVE: Vital Signs: Blood pressure 155/80, heart rate 92, respiratory 18, temperature 98.4 degrees. 99% on 2 L. General: A well-developed female, in no distress. Cardiovascular: Regular rate and rhythm. Pulmonary: No wheezes. Diminished at the bases. Gastrointestinal: Abdomen soft, nontender, somewhat distended. Bowel sounds are positive. Extremities: No clubbing or cyanosis. Lymphatics: No peripheral edema. LABORATORY DATA: Was pretty much unremarkable. White count normal. Hemoglobin and hematocrit 10 and 31, platelets 247,000. White count, 7.5. Chemistries: Potassium 3.2. She is hypothyroid. PROBLEM LIST: 1. Chronic obstructive pulmonary disease exacerbation. We will continue breathing treatments. I think we could probably transition her. I am going to wean her steroids because I think her bronchospasm is better. We are weaning BiPAP. 2. Acute respiratory failure. Weaning BiPAP and continue to follow very closely. 3. Hypokalemia. We are going to supplements and follow. 4. Right pleural effusion. She does have an infiltrate there. I am not sure if this is related to just poor or severe protein calorie malnutrition and a low albumin state. I am going to give her some Lasix and we will repeat her chest x-ray tomorrow. Work on trying to get her up and around a little bit if we can. She is very debilitated at baseline. 5. Anemia. This appears to be stable. 6. Encephalopathy slowly improving. 7. Pubic rami fracture. Continue pain control. She will likely need PT. DISPOSITION: She may end up needing rehab. She is just very clinically deteriorated and she has a pelvic fracture. So, we will continue to monitor this. cc: Gerson Santana MD
[2017-01-12] MEDS: LOVENOX SUBQ SCH (20:16)
[2017-01-12] MEDS: DULCOLAX PR SCH (20:17)
[2017-01-13] MEDS: DUONEB (A & A) INH SCH ×6 (02:21→23:07)
[2017-01-13] MEDS: SOLU-MEDROL IV SCH ×3 (03:14→20:54)
[2017-01-13] MEDS: SYNTHROID PO SCH (06:17)
[2017-01-13] MEDS: PROTONIX PO SCH (06:17)
[2017-01-13 07:06] LABS: HEMATOCRIT 37.2 % (37.0-47.0); HEMOGLOBIN 11.9 g/dL (12.0-16.0); MCV 90.5 FL (81-99); MPV 9.5 FL (7.4-10.4); RBC 4.11 XMIL (4.2-5.4)
[2017-01-13 07:17] LABS: AGAP 7; BUN 30 mg/dL (8-22); CALCIUM 9.4 mg/dL (8.8-10.2); CHLORIDE 95 mmol/L (98-107); COSMO 288; MAGNESIUM 1.8 mg/dL (1.5-2.7); POTASSIUM 2.8 mmol/L (3.5-5.1); SODIUM 141 mmol/L (136-145); TCO2 39 mmol/L (25-35)
[2017-01-13] MEDS ORDERED: SODIUM CHLORIDE 0.9% 10 ML ONE (07:29)
[2017-01-13] MEDS: MUCOMYST 20% INH SCH ×2 (07:31→19:38)
[2017-01-13] MEDS: ATIVAN IV PRN (07:37)
[2017-01-13] MEDS: MIRALAX PO SCH ×2 (09:08→20:54)
[2017-01-13] MEDS: NICODERM PATCH TD SCH (09:08)
[2017-01-13] MEDS: ISOPTIN SR PO SCH ×2 (09:09→20:54)
[2017-01-13] MEDS: NORVASC PO SCH ×2 (09:09→20:55)
[2017-01-13] MEDS: ZITHROMAX PO SCH (09:09)
--- NOTE | 2017-01-13 09:59 | Diag Imaging Result Document ---
PROCEDURE NAME: CHEST-PORTABLE - 01/13/2017 PORTABLE CHEST X-RAY: COMPARISON: 01/12/2017. FINDINGS: Stable patchy bibasilar infiltrates. There is a probable small right pleural effusion. No new infiltrates. Heart size remains top normal. IMPRESSION: No change from prior.
[2017-01-13] MEDS: ROCEPHIN 1 GM/NS 1 GM/50 ML IVPB IV SCH (11:21)
[2017-01-13] MEDS ORDERED: KLOR-CON PO ONE (13:56)
--- NOTE | 2017-01-13 14:44 | PROGRESS NOTE ---
DATE: 01/13/2017 SUBJECTIVE: Patient has no focal complaints. She is very lethargic but she got Ativan early this morning. OBJECTIVE: Vital signs: Blood pressure 129/73, heart rate of 87, respiratory 16, temperature 98.2, 98% on 2 L. Cardiovascular: Regular rate and rhythm. Pulmonary: Bilateral breath sounds. Clear to auscultation. GI: Soft, nontender, nondistended. Bowel sounds are positive. LABORATORY DATA: White count 11.3, hemoglobin and hematocrit 11 and 37, platelets 283,000. Chemistries. Potassium is 2.8 with a BUN of 30. PROBLEM LIST: 1. Chronic obstructive pulmonary disease exacerbation. Clinically she appears like she is stabilizing. Her breathing is overall better. She is tolerating BiPAP at night. I am going to wean her steroids and we will follow clinically. 2. Hypercapnia is stable. We will wean BiPAP and follow. 3. Hypokalemia. We will supplement, likely related to her diuretics. 4. Right pleural effusion. Her chest x-ray today seems to be stable. She has a small effusion though is not really worse. I think she is stabilizing. We will progress with rehab soon. 5. Encephalopathy. May be related to chronic alcohol use, chronic hypoxia. We will continue to follow. Anticipate discharge in the next 1-2 days pending the rest of her workup. cc: Gerson Santana MD
[2017-01-13] MEDS ORDERED: NS 500 ML ONE (14:48)
[2017-01-13] MEDS: POTASSIUM CHLORIDE 20 MEQ/SWI 20 MEQ/100 ML IVPB IV SCH ×2 (15:34→17:32)
[2017-01-13] MEDS: DULCOLAX PR SCH (20:54)
[2017-01-13] MEDS: LOVENOX SUBQ SCH ×2 (20:55→21:30)
[2017-01-13] MEDS: KLONOPIN PO PRN (20:55)
[2017-01-14] MEDS: DUONEB (A & A) INH SCH ×6 (03:32→23:07)
[2017-01-14] MEDS: SYNTHROID PO SCH (06:18)
[2017-01-14] MEDS: PROTONIX PO SCH (06:18)
[2017-01-14 06:32] LABS: HEMATOCRIT 36.7 % (37.0-47.0); HEMOGLOBIN 11.8 g/dL (12.0-16.0); MCH 29.2 PG (27-31); MCHC 32.2 g/dL (33-37); MCV 90.8 FL (81-99); MPV 9.5 FL (7.4-10.4); RBC 4.04 XMIL (4.2-5.4)
[2017-01-14 07:08] LABS: AGAP 9; BUN 30 mg/dL (8-22); CALCIUM 9.3 mg/dL (8.8-10.2); CHLORIDE 98 mmol/L (98-107); COSMO 286; MAGNESIUM 1.8 mg/dL (1.5-2.7); SODIUM 140 mmol/L (136-145); TCO2 33 mmol/L (25-35)
[2017-01-14 07:25] LABS: POTASSIUM 4.5 mmol/L (3.5-5.1)
[2017-01-14] MEDS: MUCOMYST 20% INH SCH ×2 (07:48→19:32)
[2017-01-14] MEDS: SPIRIVA INH SCH (07:48)
[2017-01-14] MEDS: NORVASC PO SCH ×2 (08:18→20:25)
[2017-01-14] MEDS: MIRALAX PO SCH ×2 (08:18→20:25)
[2017-01-14] MEDS: ISOPTIN SR PO SCH ×2 (08:18→20:25)
[2017-01-14] MEDS: SOLU-MEDROL IV SCH (08:18)
[2017-01-14] MEDS: NICODERM PATCH TD SCH (08:18)
[2017-01-14] MEDS: ZITHROMAX PO SCH (08:19)
[2017-01-14] MEDS: KLONOPIN PO PRN ×2 (12:15→19:19)
[2017-01-14] MEDS: ROCEPHIN 1 GM/NS 1 GM/50 ML IVPB IV SCH (12:15)
--- NOTE | 2017-01-14 15:53 | PROGRESS NOTE ---
DATE: 01/14/2017 SUBJECTIVE: Patient has no focal complaints. She looks a little bit more awake today. Not quite as confused. Overall seems much more appropriate but still very weak. OBJECTIVE: Vital signs: Blood pressure is 132/68, heart rate of 87, respiratory 18, temperature 98.1 degrees, 96% on 3 L. Cardiovascular: Regular rate and rhythm. Pulmonary: Bilateral breath sounds. Clear to auscultation. GI: Was soft, nontender, nondistended. Bowel sounds are positive. Extremities: No clubbing or cyanosis. Lymphatics: No peripheral edema. Neurological: Nonfocal. LABORATORY DATA: White count of 12, hemoglobin and hematocrit 11 and 36. Platelets 287,000. Chemistries look okay including Mag and phosphorus. PROBLEMS: 1. Chronic obstructive pulmonary disease exacerbation is slowly improving. We will wean steroids. 2. Hypercapnic respiratory failure. She is tolerating nocturnal BiPAP. 3. Hypokalemia. This appears to be resolving. 4. Encephalopathy likely multifactorial. She is slowly improving as far as that is concerned. DISPOSITION: Plan to pursue inpatient rehab in the next 1-2 days. We will continue to monitor. cc: Gerson Santana MD
[2017-01-14] MEDS: LOVENOX SUBQ SCH (20:25)
[2017-01-15] MEDS: DUONEB (A & A) INH SCH ×6 (03:00→23:16)
[2017-01-15] MEDS: PROTONIX PO SCH (06:16)
[2017-01-15] MEDS: SYNTHROID PO SCH (06:16)
[2017-01-15 06:34] LABS: HEMATOCRIT 40.7 % (37.0-47.0); HEMOGLOBIN 13.2 g/dL (12.0-16.0); MCH 29.3 PG (27-31); MCHC 32.4 g/dL (33-37); MCV 90.2 FL (81-99); MPV 9.6 FL (7.4-10.4); RBC 4.51 XMIL (4.2-5.4)
[2017-01-15 06:48] LABS: AGAP 9; BUN 29 mg/dL (8-22); CALCIUM 9.3 mg/dL (8.8-10.2); CHLORIDE 95 mmol/L (98-107); COSMO 281; POTASSIUM 4.2 mmol/L (3.5-5.1); SODIUM 138 mmol/L (136-145); TCO2 34 mmol/L (25-35)
[2017-01-15] MEDS: SPIRIVA INH SCH (07:41)
[2017-01-15] MEDS: MUCOMYST 20% INH SCH ×2 (07:41→19:05)
[2017-01-15] MEDS ORDERED: SOLU-MEDROL IV SCH (09:00)
[2017-01-15] MEDS: NICODERM PATCH TD SCH (09:13)
[2017-01-15] MEDS: ISOPTIN SR PO SCH ×2 (09:13→21:14)
[2017-01-15] MEDS: MIRALAX PO SCH ×2 (09:13→21:55)
[2017-01-15] MEDS: NORVASC PO SCH ×2 (09:13→21:15)
[2017-01-15] MEDS: ZITHROMAX PO SCH (09:14)
[2017-01-15] MEDS: ROCEPHIN 1 GM/NS 1 GM/50 ML IVPB IV SCH (11:29)
[2017-01-15] MEDS: KLONOPIN PO PRN ×2 (11:32→21:15)
[2017-01-15] MEDS ORDERED: LEVAQUIN 500 MG/D5W 500 MG/100 ML IVPB IV SCH ×2 (19:00→20:00)
--- NOTE | 2017-01-15 20:27 | PROGRESS NOTE ---
DATE: 01/15/2017 SUBJECTIVE: The patient has no focal complaints. OBJECTIVE: Vital Signs: Blood pressure 113/72, heart rate 91, respiratory rate 16, temperature 97.6 degrees, 98% on 3 L. Cardiovascular: Regular rate and rhythm. Pulmonary: Bilateral breath sounds. Clear to auscultation. Gastrointestinal: Soft, nontender, nondistended. Bowel sounds are positive. Extremities: No clubbing or cyanosis. Lymphatic Examination: No peripheral edema. Neurological examination: Nonfocal. LABORATORY DATA: White count is still very elevated up to 18,000. Not really a clear source. She is on steroids. PROBLEM LIST: 1. Chronic obstructive pulmonary disease exacerbation. Clinically she seems to be improved. I am just going to stop her steroids to avoid with their neutrophilia. 2. Hypercapnic respiratory failure. She is stable on BiPAP. 3. Leukocytosis. I will add Levaquin, check a urine on her, repeat her chest x-ray tomorrow and follow. 4. Hypertension. We will continue to monitor closely. DISPOSITION: I think patient really needs rehabilitation. She can barely get out of bed but she is refusing rehabilitation. I am not really completely sure she understands the gravity of her situation. She had a dizzy sensation that resolved within 1 minute of seated rest. She used a front wheel walker and moved 2 feet. I just do not feel like she is going to be safe to go home. She does not have any family member that she directly lives with. She has brothers and a sister- in-law. We discussed with the family about treatment options. She is adamant about going home, however, again I do not think it is a safe plan of discharge although again we cannot force her to go, and at this point she has new leukocytosis which we need to better characterize . cc: Gerson Santana MD
[2017-01-15] MEDS: LOVENOX SUBQ SCH (21:15)
[2017-01-16] MEDS: DUONEB (A & A) INH SCH ×4 (03:10→16:00)
[2017-01-16 05:50] LABS: HEMATOCRIT 37.3 % (37.0-47.0); MCH 29.1 PG (27-31); MCHC 32.2 g/dL (33-37); MCV 90.5 FL (81-99); MPV 9.4 FL (7.4-10.4); RBC 4.12 XMIL (4.2-5.4)
[2017-01-16 06:04] LABS: URINE CULTURE NEEDED? NO; URINE MICRO REVIEW NEEDED? NO; URINE SOURCE CLEAN CATCH
[2017-01-16] MEDS: SYNTHROID PO SCH (06:14)
[2017-01-16] MEDS: PROTONIX PO SCH (06:14)
[2017-01-16 06:15] LABS: BILIRUBIN URINE NEGATIVE (NEGATIVE); BLOOD URINE NEGATIVE (NEGATIVE); COLOR YELLOW; GLUCOSE URINE NEGATIVE (NEGATIVE); LEUKOCYTES URINE NEGATIVE (NEGATIVE); NITRITE URINE NEGATIVE (NEGATIVE); PH URINE 6.5; PROTEIN URINE TRACE mg/dL (NEGATIVE); SP GRAVITY URINE 1.019; TURBIDITY URINE CLEAR (CLEAR); UROBILINOGEN URINE NORMAL (NORMAL)
[2017-01-16 06:17] LABS: UR EPITHELIAL CELLS <10 /HPF (<10); URINE BACTERIA NEGATIVE /HPF; URINE RBC <10 /HPF (<10); URINE WBC <10 /HPF (<10)
[2017-01-16 06:40] LABS: AGAP 6; BUN 29 mg/dL (8-22); CALCIUM 9.1 mg/dL (8.8-10.2); CHLORIDE 98 mmol/L (98-107); COSMO 282; SODIUM 139 mmol/L (136-145); TCO2 35 mmol/L (25-35)
[2017-01-16] MEDS: SPIRIVA INH SCH (08:09)
[2017-01-16] MEDS: MUCOMYST 20% INH SCH (08:09)
--- NOTE | 2017-01-16 08:22 | Diag Imaging Result Document ---
PROCEDURE NAME: CHEST-2 VIEWS - 01/16/2017 CHEST X-RAY, 2 VIEWS: COMPARISON: 01/13/2017. FINDINGS: Heart size remains top normal and stable from prior. There is a small right and trace left pleural effusion stable from prior. There is improvement in the patchy bibasilar infiltrates. No new infiltrates. IMPRESSION: Improvement in the subtle bibasilar infiltrates.
[2017-01-16] MEDS: NICODERM PATCH TD SCH (11:43)
[2017-01-16] MEDS: NORVASC PO SCH ×2 (11:43→11:47)
[2017-01-16] MEDS: ISOPTIN SR PO SCH ×2 (11:43→11:46)
[2017-01-16] MEDS: MIRALAX PO SCH (11:44)
[2017-01-16] MEDS: ROCEPHIN 1 GM/NS 1 GM/50 ML IVPB IV SCH (11:48)
[2017-01-16] MEDS: KLONOPIN PO PRN (12:19)
--- NOTE | 2017-01-16 14:31 | DISCHARGE SUMMARY ---
ADMISSION DATE: 01/08/2017 DISCHARGE DATE: 01/16/2017 CONSULTATION: Dr. Jayy Harvey with Orthopedics. PERTINENT PROCEDURES: 1. Abdomen and pelvis CT showed COPD and left upper lobe pneumonia, severe constipation, atherosclerosis, fibroid uterus, left ischial pubic ramus fracture of uncertain age. 2. Elbow x-ray showed soft tissue edema suggesting of an elbow joint effusion. No definite acute osseous abnormality. DISCHARGE DIAGNOSES: 1. Acute chronic obstructive pulmonary disease exacerbation with hypercapnia, improved. The patient is on home O2. I will discharge on bronchodilator therapy as well as her home supplemental O2 and p.o. antibiotics. 2. Metabolic encephalopathy, resolved. 3. Anemia of chronic disease, stable. 4. Left upper lobe pneumonia. Continue p.o. antibiotics plus bronchodilator therapy and supplemental O2. 5. Left ischial pubic ramus fracture. Management as per the orthopedic team. Will follow up in 1 month. 6. Hypothyroidism. Her Synthroid dose was decreased secondary to the patient's free T4 and TSH being low. 7. Tobacco dependence. The patient has been counseled regarding smoking cessation as well as the means to quit. 8. Hypertension. Continue with Norvasc. That was added as well as home medications. 9. Leukocytosis secondary to IV steroids, improving with discontinuation. 10. Generalized deconditioning. The patient has worked with physical therapy. She was set up for rehab; however, yesterday upon discharge, she refused rehab. We spoke at length with the patient as well as Mortgage Loan Officer and Dr. Santana how the patient can barely get out of bed. While the patient did get up, she had a dizzy sensation that resolved after 1 minute of seated rest. She used a front wheel walker and moved about 2 feet. We do not feel like she would be a safe discharge home. She does live alone. She does not have any family members that live directly with her. She has a brother and [id number]. They did discuss with the family about treatment options; however, yesterday the patient was adamant about going home, however, today after speaking with her again, she is open and ready to be discharged to rehab today. HOSPITAL COURSE: Ms. Singh is a 71-year-old, female, with history of COPD on 27/04 home O2, hypothyroidism, hypertension, who apparently had been drinking heavily the day before her admission. She reports she drank 2 bottles of wine and either passed out or falling on the floor. She was unclear which. She was able to get up when she did come to, but she remained on the floor for multiple hours. She was found by her brother, who is also her landlord, the morning of her admission around 9:00 a.m. She denies any chest pain, but she went without her home oxygen all night, and she was quite short of breath. Her chest x-ray in the ED did not show anything acute. Her lab data showed mild hyponatremia, elevated liver enzymes, as well as leukocytosis. Blood cultures were drawn, and the patient was given Rocephin for COPD exacerbation, placed on BiPAP for hypoxemic respiratory failure. She was admitted to the ICU. She did have a head and cervical spine CT that showed no evidence of acute intracranial disease. No evidence of acute bony disease. Her lumbar spine just showed degenerative changes. No acute osseous abnormality. Her abdomen and pelvis CT did show COPD, left upper lobe pneumonia, and a left ischial pubic ramus fracture of uncertain age. She also had an elbow x-ray that showed soft tissue edema suggestive of an elbow joint effusion. Dr. Harvey was consulted with orthopedics. He said that she could be weightbearing as tolerated. Mobilize with offset press assistant devices and symptomatic pain management and recommended her to go to rehab after discharge and follow up in [address] Harvey. The patient spent several days on nightly BiPAP. She was able to move out of the ICU to a regular room. We did put in a Social Service as well as Physical Therapy consult in reference to her generalized deconditioning. The patient has been accepted to [facility]; however, on the day of discharge, she adamantly refused to go. Again, we discussed with her and the family about her deterioration and how she would not be a safe discharge. She could barely get out of bed. The patient has agreed to be discharged to rehab today. Vital signs at time of her discharge: Temperature is 98.1, degrees, heart rate 95, respirations 18, blood pressure 126/77, O2 is 93% on 3 L nasal cannula. PHYSICAL EXAMINATION: General: Francisco Seaman is a 71-year-old, female, who looks greater than her age, lying in bed in no acute distress receiving a breathing treatment. HEENT: Atraumatic and normocephalic. PERRLA. Neck: Supple. Trachea midline. CV: No murmurs, gallops, or rubs noted. Respiratory: Lungs sounds are clear bilaterally. Abdomen: He is soft nontender and nondistended. Positive bowel sounds in all 4 quadrants. Extremities: No clubbing or cyanosis. No edema. Neurologic: The patient is alert and oriented x3. She does follow commands. DISCHARGE DIET: Healthy heart with Boost. DISCHARGE MEDICATIONS: 1. DuoNeb 3 mL inhaled q.6 hours p.r.n. 2. Norvasc 5 mg p.o. b.i.d. 3. Klonopin 0.5 mg p.o. t.i.d. 4. Levaquin 500 mg p.o. daily for 7 days. 5. Synthroid 25 mcg p.o. daily. 6. MiraLAX 17 g p.o. b.i.d. 7. Spiriva 1 puff inhaled RT daily. 8. Verapamil 240 mg p.o. b.i.d. FOLLOWUP: The patient is being discharged to [facility], she will need to follow up with Dr. Harvey in 1 month as well as her primary care physician after rehab. The patient will return to the ED for any worsening of symptoms. The patient will be weightbearing as tolerated. Immobilize with assistive devices as necessary. Discharge time: 30 minutes. Dictated by KOJO Wallace for Gerson Santana MD cc: MD Aldo Frazier Jr, MD pt examined, I agree with above, pt is ready for dc APENOT MTDD
[2017-01-16 15:36] VITALS: BP 132/78
== END 2017-01-16 17:15 ==
LOC: ED 10:10 → EDIPHOLD 15:14 → SUATTDRO 15:14 → ICU 16:04 → 4N 01-09 13:13
PROVIDERS: ATTEND Internal Medicine

== ENCOUNTER 2017-02-02 03:01 | Inpatient (IN) ==
--- NOTE | 2017-02-02 03:11 | PROVIDER DOCUMENTATION ---
HPI-Respiratory General - General Chief Complaint: Shortness of Breath Stated Complaint: SOB Time Seen by Provider: 02/02/17 03:05 Source: patient, EMS (Patient is a 71 year old white female, sn[facility] patient , with history of COPD and dementia who presents by EMS with reported low oxygen saturation at snf and SOB. EMS reports oxygen sat over 90%. Patient received CPAP at snf. No reported fever.) Allergies/Adverse Reactions: Patient Allergies Allergy/AdvReac Type Severity Reaction Status Date / Time No Known Allergies Allergy Verified 02/02/17 03:52 Home Medications: Home Medication List Medication Instructions Recorded Confirmed Last Taken Type Albuterol 2.5MG/Ipratrop 0.5MG 3 ml INH Q6H PRN PRN 01/08/17 01/08/17 01/07/17 08:30 History [Duoneb (A & A)] Verapamil HCl 240 mg PO BID 01/08/17 01/08/17 01/07/17 08:30 History Amlodipine [Norvasc] 5 mg PO BID #60 tablet 01/16/17 Unknown Rx Clonazepam [Klonopin] 0.5 mg PO TID PRN PRN #0 tablet 01/16/17 Unknown Rx Levofloxacin [Levaquin] 500 mg PO DAILY #7 tablet 01/16/17 Unknown Rx Levothyroxine [Synthroid] 25 microgm PO DAILY@0700 #30 tablet 01/16/17 Unknown Rx Polyethylene Glycol 3350 [Miralax] 17 gm PO BID powder, packet 01/16/17 Unknown Rx Tiotropium Belva Inhaler 1 puff INH RTDAILY #1 inhaler 01/16/17 Unknown Rx [Spiriva] - History of Present Illness-Resp Quality of Pain: reports: none Onset/Duration: reports: just prior to arrival Timing: reports: improving Review of Systems - Adult - REVIEW OF SYSTEMS - ADULT ROS:: limited per condition Constitutional: reports: see HPI Past History - Adult - PAST MEDICAL HISTORY-ADULT Review of Records: reports: Old Records Reviewed, Nursing Assessment Review, Medications Reviewed, Social history reviewed & non-contributory. Cardiovascular: reports: HTN Respiratory: reports: COPD, other (home O2 req) Endocrine/Immune: reports: thyroid disorder - PRIOR SURGERIES/PROCEDURES Surgical/Procedure History: reports: other (ovary removal) - IMMUNIZATION STATUS Childhood Immunizations: See Nurse Assessment Flu Vaccine: See Nurse Assessment Physical Exam-General - CONSTITUTIONAL General Appearance: alert, other (demented, in no distress, nonlabored respirations) - EYES Eyes: other (clear) - HEAD, EARS, NOSE, MOUTH & THROAT HENMT: moist mucous membranes - NECK Neck: supple - RESPIRATORY Respiratory: lungs clear, no respiratory distress, no accessory muscle use, decreased breath sounds - CARDIOVASCULAR Cardiovascular: regular rate, rhythm - GASTROINTESTINAL (ABDOMEN) Abdominal Exam: non tender, soft - LYMPHATIC Lymphatic: no adenopathy - MUSCULOSKELETAL Back Exam: normal inspection, no CVA tenderness, no vertebral tenderness Extremity: non-tender, other (no cords or Homans, no swelling) - SKIN Integumentary: normal color - NEUROLOGIC Neurologic: other (nonfocal) - PSYCHIATRIC Psych/Mental Status: other (demented) Progress - PLAN OF CARE/RESULTS Progress/Plan/Lab Results: Vital Signs - 8 hr 02/02/17 03:06 02/02/17 04:02 Temperature 97.4 F L Pulse Rate 68 71 Respiratory Rate 18 Blood Pressure 109/67 138/81 O2 Sat by Pulse Oximetry 92 L 84 L Laboratory Results - last 24 hr 02/02/17 02/02/17 02/02/17 03:34 03:34 03:34 WBC 4.91 RBC 4.56 Hgb 13.4 Hct 40.7 MCV 89.3 MCH 29.4 MCHC 32.9 L RDW Std Deviation 12.7 Plt Count 345 MPV 8.4 Immature Gran % (Auto) 0.6 H Neut % (Auto) 77.8 H Lymph % (Auto) 11.6 L [place] % (Auto) 8.8 Eos % (Auto) 0.8 Baso % (Auto) 0.4 Immature Gran # (Auto) 0.03 Neut # (Auto) 3.82 Lymph # (Auto) 0.57 L [place] # (Auto) 0.43 Eos # (Auto) 0.04 Baso # (Auto) 0.02 Specimen Type Sample Site pH pCO2 pO2 HCO3 Base Excess Oxyhemoglobin ABG O2 Sat (Calculated) ABG O2 Saturation ABG Carboxyhemoglobin ABG Methemoglobin [place] Test A-a O2 Difference Total Hemoglobin Lactate Liter Flow Blood Gas Modality FiO2 % Sodium Potassium Chloride Carbon Dioxide Anion Gap BUN Creatinine Estimated GFR/1.73 m2 BUN/Creatinine Ratio Glucose Calculated Osmolality Calcium Troponin T < 0.010 Dwx-D-Hnonitjjhub Pept 302 05/01/17 05/01/17 03:34 03:55 WBC RBC Hgb Hct MCV MCH MCHC RDW Std Deviation Plt Count MPV Immature Gran % (Auto) Neut % (Auto) Lymph % (Auto) [place] % (Auto) Eos % (Auto) Baso % (Auto) Immature Gran # (Auto) Neut # (Auto) Lymph # (Auto) [place] # (Auto) Eos # (Auto) Baso # (Auto) Specimen Type ARTERIAL Sample Site R RADIAL pH 7.41 pCO2 83 H* pO2 54 L HCO3 42.9 H Base Excess 23.3 H Oxyhemoglobin 88.8 L* ABG O2 Sat (Calculated) 15.2 ABG O2 Saturation 92.7 L ABG Carboxyhemoglobin 2.60 H ABG Methemoglobin 1.5 [place] Test YES A-a O2 Difference 99.0 Total Hemoglobin 12.2 Lactate 0.30 L Liter Flow 4.0 Blood Gas Modality CANNULA FiO2 % 36.0 Sodium 135 L Potassium 4.0 Chloride 87 L Carbon Dioxide 38 H Anion Gap 10 BUN 9 Creatinine 0.4 L Estimated GFR/1.73 m2 > 60 BUN/Creatinine Ratio 23 Glucose 70 Calculated Osmolality 267 Calcium 9.5 Troponin T Wwf-S-Txzdhxjboin Pept Orders Category Date Time Status Cardiac Monitoring DIRECTED Care 02/02/17 03:06 Active Oxygen Therapy- ED Nursing DIRECTED Care 02/02/17 03:06 Active CHEST-1 VIEW [RAD] Stat Exams 02/02/17 03:07 Taken ABG [RESP] Routine Lab 02/02/17 03:55 Completed BLOOD CULTURE [BLDCUL] Stat Lab 02/02/17 04:09 Ordered BMP [BASIC METABOLIC PANEL] [CHEM] Stat Lab 02/02/17 03:34 Completed CBC WITH ELECTRONIC DIFF [HEME] Stat Lab 02/02/17 03:34 Completed PRO B-NATRIURETIC PEPTIDE Stat Lab 02/02/17 03:34 Completed TROPONIN T Stat Lab 02/02/17 03:34 Completed Albuterol 2.5MG/Ipratrop 0.5MG [Duoneb (A & A)] Med 02/02/17 04:06 Discontinued 3 ml INH NOW ONE CefTRIAXONE 1 GM/NS [Rocephin 1 gm/Ns] Med 02/02/17 04:09 Active 1 gm in 50 ml IV NOW Methylprednisolone Sod Succ [Solu-Medrol] Med 02/02/17 04:06 Discontinued 125 mg IV NOW ONE Aerosol Treatments Routine Oth 02/02/17 04:06 Active Aerosol Treatments Stat Oth 02/02/17 04:06 Active BIPAP Stat Oth 02/02/17 04:17 Ordered EKG [EKG] Stat Ther 02/02/17 03:06 Ordered Result Diagrams: 02/02/17 03:34 02/02/17 03:34 - EKG 1 Time of EKG reading by physician:: 03:05 EKG Read and Signed by:: Humberto Booth Rate: 70 Rhythm: NSR [place]: left QRS: normal [place] Interval: normal ST Wave: normal Comments: no STEMI - CONSULTS/PCP/HOSPITALIST Notification #1 *Consult/PCP/Hospitalist*: Dr. Fernandez, Hospitalist Time Discussed: 04:15 Consult Disposition: Will see in ED Departure - Departure Time of Disposition Decision: 04:15 DIAGNOSIS: Hypoxemia, Hypercarbia, COPD exacerbation Disposition: ADMITTED INPATIENT 09 Certified Medical Emergency: Emergent Condition: Stable Referrals and Follow-Ups: Aldo De La Fuente [Primary Care Provider] - - Critical Care Note This patient required my direct personal management.: Yes
[2017-02-02 03:50] LABS: MANUAL DIFF NEEDED? NO
[2017-02-02 03:54] LABS: BASO% 0.4 % (0.0-0.8); EOS# 0.04 X1000 (0.0-0.7); EOS% 0.8 % (0.0-10.0); HEMATOCRIT 40.7 % (37.0-47.0); HEMOGLOBIN 13.4 g/dL (12.0-16.0); IMM GRAN# 0.03 X1000 (0.0-0.04); IMM GRAN% 0.6 % (0.0-0.5); LYMPH# 0.57 X1000 (1.2-3.4); LYMPH% 11.6 % (20.5-51.1); MCH 29.4 PG (27-31); MCHC 32.9 g/dL (33-37); MCV 89.3 FL (81-99); MONO# 0.43 X1000 (0.11-0.59); MONO% 8.8 % (1.7-9.3); MPV 8.4 FL (7.4-10.4); NEUT% 77.8 % (42.2-75.2); PLT 345 X1000 (130-400); RBC 4.56 XMIL (4.2-5.4)
[2017-02-02 04:02] LABS: ALLEN TEST YES; BE 23.3 mmoll (-3.0-3.0); BLOOD TYPE ARTERIAL; DRAW SITE R RADIAL; METHB 1.5 % (0.0-1.5); O2(CT) 15.2 mL/dL (15.0-23.0); PO2(98.6) 54 mmHg (60-100); SAMPLE BLOOD; SAO2 92.7 % (95.0-100.0); THB 12.2 g/dL (11.5-17.4); pH(98.6) 7.41 (7.35-7.45)
[2017-02-02 04:03] LABS: MODALITY CANNULA; PCO2(98.6) 83 mmHg (35-45)
[2017-02-02] MEDS ORDERED: SOLU-MEDROL IV ONE (04:06)
[2017-02-02] MEDS ORDERED: DUONEB (A & A) INH ONE (04:06)
[2017-02-02] MEDS ORDERED: ROCEPHIN 1 GM/NS 1 GM/50 ML IVPB IV ONE (04:09)
[2017-02-02 04:11] LABS: AGAP 10; BUN 9 mg/dL (8-22); CALCIUM 9.5 mg/dL (8.8-10.2); CHLORIDE 87 mmol/L (98-107); COSMO 267; SODIUM 135 mmol/L (136-145); TCO2 38 mmol/L (25-35)
[2017-02-02] MEDS ORDERED: ZOFRAN IV PRN (05:24)
[2017-02-02] MEDS ORDERED: TYLENOL PO PRN (05:24)
--- NOTE | 2017-02-02 05:40 | HISTORY AND PHYSICAL ---
CHIEF COMPLAINT: Shortness of breath. HISTORY OF PRESENTING ILLNESS: A 71-year-old female who was sent from [facility] to the hospital due to patient having worsening shortness of breath. The patient was evaluated in the ER. She was found to be mildly short of breath. Her blood gases show that she was hypercapnic. She was put on BiPAP and she was having some improvement. Due to her presenting symptoms, she will need hospitalization for further management. The patient was not communicating that well. Seemed somewhat confused and was mostly nodding to questions. Most of the history is obtained from previous records. However, she had denied having any headache, fever, chills, chest pain, hemoptysis, or weight changes. States she was short of breath. PAST MEDICAL HISTORY: COPD on 2 L home oxygen, hypothyroidism, hypertension. PAST SURGICAL HISTORY: , oophorectomy. ALLERGIES: No known drug allergies. CURRENT MEDICATIONS: As listed in the MAR. SOCIAL HISTORY: Half a pack of cigarettes daily. History of alcohol use daily, mostly wine. Denies any illicit drug use. FAMILY HISTORY: No history of coronary artery disease. REVIEW OF SYSTEMS: Limited as in HPI. Other 12 point review of systems was noted and other systems are negative. PHYSICAL EXAMINATION: GENERAL: The patient is in mild to moderate respiratory distress and is on BiPAP. VITAL: Temperature 97.4 degrees, pulse 68, respirations 18, blood pressure 109/67. HEENT: Atraumatic, normocephalic. Extraocular movements intact. NECK: No masses. CHEST: Rhonchi. CARDIOVASCULAR: Regular rate and rhythm. ABDOMEN: Soft. Positive bowel sounds. EXTREMITIES: No edema. NEUROLOGIC: She is awake and alert. : No bladder distention. SKIN: Warm with good turgor. LABORATORY AND DIAGNOSTIC STUDIES: Sodium 135, potassium 4, chloride 87, CO2 is 38, BUN is 9, creatinine is 0.4 glucose is 70. Blood gas shows a pH of 7.41, pCO2 of 83. WBCs 4.91, hemoglobin 13.4, hematocrit 40.7, platelets are 345,000. ASSESSMENT: A 71-year-old female with a history of chronic obstructive pulmonary disease and hypertension. Was brought to the emergency department from [facility] due to patient having worsening shortness of breath. She was found to have hypercapnia. She was put on BiPAP and she will need hospitalization for further management. 1. Acute hypercapnic respiratory failure. 2. Chronic obstructive pulmonary disease exacerbation. 3. Hypertension. PLAN: 1. We will admit patient to the ICU. 2. We will continue patient on BiPAP. 3. We will continue with DuoNebs and IV Solu-Medrol. 4. We will monitor blood pressure, resume antihypertensive agents. 5. Put patient on DVT prophylaxis with SCDs. 6. We will continue to follow and reassess. cc: Doc Fernandez MD
[2017-02-02] MEDS: LEVAQUIN 500 MG/D5W 500 MG/100 ML IVPB IV SCH (06:30)
[2017-02-02] MEDS: DUONEB (A & A) INH SCH ×5 (07:30→22:30)
--- NOTE | 2017-02-02 08:16 | Diag Imaging Result Document ---
PROCEDURE NAME: CHEST-1 VIEW - 02/02/2017 PORTABLE CHEST: COMPARISON: 01/16/2017. FINDINGS: There are ypcox-oz-snhbeqfv sized bilateral pleural effusions with bibasilar atelectasis versus infiltrates. The pulmonary vessels are distended. The heart is not enlarged. The apices are clear. IMPRESSION: Pleural effusions with basilar atelectasis versus infiltrates in addition to pulmonary edema. Follow up films recommended.
[2017-02-02] MEDS ORDERED: KLONOPIN PO PRN ×2 (10:06→10:26)
[2017-02-02 10:11] LABS: ALLEN TEST YES; BE 20.9 mmoll (-3.0-3.0); BLOOD TYPE ARTERIAL; DRAW SITE R RADIAL; METHB 0.6 % (0.0-1.5); O2(CT) 14.8 mL/dL (15.0-23.0); PO2(98.6) 66 mmHg (60-100); SAMPLE BLOOD; SAO2 100.8 % (95.0-100.0); THB 10.9 g/dL (11.5-17.4); pH(98.6) 7.54 (7.35-7.45)
[2017-02-02 10:13] LABS: MODALITY BI PAP; PCO2(98.6) 54 mmHg (35-45)
[2017-02-02] MEDS: ULTRAM PO PRN ×2 (11:28→19:58)
[2017-02-02] MEDS ORDERED: LEVOPHED 8 MG in D5 1/2 NS 250 ML IV SCH (12:45)
--- NOTE | 2017-02-02 13:33 | EKG Report ---
Test Performed on : 02/02/2017 03:04:21 AM Test Reason : SOB Blood Pressure : / mmHG Vent. Rate : 070 BPM Atrial Rate : 070 BPM P-R Int : 140 ms QRS Dur : 080 ms QT Int : 430 ms P-R-T Axes : 047 -35 071 degrees QTc Int : 464 ms Normal sinus rhythm. with sinus arrhythmia. Left axis deviation Anteroseptal infarct (cited on or before 08-JAN-2017) T wave abnormality, consider lateral ischemia Abnormal ECG When compared with ECG of 08-JAN-2017 11:05, Vent. rate has decreased BY 38 BPM Questionable change in initial forces of Anterior leads Nonspecific T wave abnormality now evident in Inferior leads Inverted T waves have replaced nonspecific T wave abnormality in Lateral leads Unconfirmed Result
--- NOTE | 2017-02-02 13:34 | CONSULTATION ---
DATE OF CONSULTATION: 02/02/2017 [facility] consult consultation 02/02/2017 REFERRING PHYSICIAN: Sabrina Cruz MD CHIEF COMPLAINT: Shortness of breath. HISTORY OF PRESENT ILLNESS: This is a 71-year-old female from [facility] who was brought into the ER for shortness of breath. Initial presentation showed hypercapnic respiratory failure with COPD exacerbation. She was placed on BiPAP and denies any fever, chills, chest pain, abdominal pain, nausea, vomiting, or diarrhea. REVIEW OF SYSTEMS: A 10-point review of systems was conducted and pertinent as noted in the HPI, otherwise noncontributory. PAST MEDICAL HISTORY: COPD, hypothyroidism and hypertension. PAST SURGICAL HISTORY: and oophorectomy. ALLERGIES: No known drug allergies. SOCIAL HISTORY: The patient smokes half a pack per day of cigarettes. History of alcohol use daily, mostly wine and denies any illicit drug use. FAMILY HISTORY: Unremarkable. ACTIVE MEDICATION: Tylenol, DuoNeb, Levaquin, Solu-Medrol, Zofran. PHYSICAL EXAMINATION: Vital signs: Temperature 96.4, blood pressure 104/72, heart rate 77, respiratory rate 16, oxygen saturation 96%. General: Awake, alert, sitting up in bed, no acute distress noted. HEENT: Normocephalic, atraumatic. PERRL. Cardiovascular: Regular rate and rhythm. S1-S2 present. Chest: Reduced air entry, some scattered rhonchi. Abdomen: Soft. Bowel sounds present. Extremities: No edema noted. Skin: Warm, dry, and intact. LABS AND INVESTIGATIONS: WBC 4.91, RBC 4.56, hemoglobin 13.4, hematocrit 40.7, platelet count 345,000. Sodium 135, potassium 4, chloride 87, carbon dioxide 38, anion gap 10, BUN 9, creatinine 0.4, glucose 70. Blood gas reveals a pH 7.41, pCO2 of 83, PO2 of 54, HC 03 of 42.9, base excess 23.3, saturated oxygen 93. ASSESSMENT/PLAN: This is a 71-year-old female from [facility] who was brought to the emergency room with complaints of shortness of breath. She was in hypercapnic respiratory failure secondary to chronic obstructive pulmonary disease exacerbation. Continue BiPAP as needed. Inhaled bronchodilators. IV steroids. Repeat blood gases. Further recommendations pending diagnostic studies. Thank you for the courtesy of this consult. Dictated by: KOJO Araiza cc: Lucy Mcneill MD
--- NOTE | 2017-02-02 14:09 | CONSULTATION ---
DATE OF CONSULTATION: 02/02/2017 CHIEF COMPLAINT: Evaluation for respiratory failure and COPD, hypercarbia. HISTORY OF PRESENTING ILLNESS: This is a 71-year-old female resident of [facility] with a past medical history of COPD, hypoxia, home oxygen, hypertension, hypothyroidism, presented to the hospital with shortness of breath, was hypercarbic, and responding well to noninvasive ventilation with BiPAP. PAST MEDICAL HISTORY: Hypoxia, home oxygen 2 L, COPD, hypertension, hypothyroidism. PAST SURGICAL HISTORY: Oophorectomy, . ALLERGIES: No known drug allergies. MEDICATIONS: Reviewed from [facility] and in the hospital. Medications in the hospital were reviewed and they include Solu-Medrol, Spiriva, Ultram, Tylenol, nebulized treatment, Norvasc, Lovenox for DVT prophylaxis, Levaquin, and Synthroid. Home medications include Klonopin and that was modified. FAMILY HISTORY: COPD. REVIEW OF SYSTEMS: As detailed in history of presenting illness. Otherwise noncontributory. PHYSICAL EXAMINATION: General: She is awake. She is on BiPAP, in bed. She was being arranged to be taken for a chest CT scan. Vital Signs: Noted. Head and Neck: Trachea midline. Chest: Reduced entry. Cardiac: S1, S2. Abdomen: Nontender. Extremities: Lower limb examination: No pedal edema. Neurologic: Awake and communicative. LABS AND INVESTIGATIONS: CBC, CMP, ABG, chest x-ray all reviewed. Chest CT scan is ordered and pending. PH 7.54, pCO2 is 54, changing from an earlier ABG with pH of 7.41, pCO2 33. PO2 on the 2nd ABG was 66 and this was on BiPAP 18 and 6 with 40% oxygen. Earlier chest x-ray done today showed some pleural effusion and atelectasis versus infiltrates, in addition to pulmonary edema but proBNP was not elevated, so this is likely an infectious process. CAT scan is being done likely will be helpful. ASSESSMENT AND PLAN: This is a 71-year-old female with home oxygen, chronic obstructive pulmonary disease, hypothyroidism, hypertension, [facility] resident, presented to the hospital with hypercarbic respiratory failure, chronic obstructive pulmonary disease with exacerbation, and pneumonia. Responding to antibiotics, steroids, noninvasive ventilation, DVT, GI prophylaxis. CT scan is pending, as ordered by the other teams. cc: Lucy Mcneill MD
--- NOTE | 2017-02-02 14:30 | Diag Imaging Result Document ---
PROCEDURE NAME: CT THORAX W/O CONTRAST - 02/02/2017 COMPARISON: 01/08/2017. FINDINGS: There are bilateral moderate to large-sized pleural effusions. Mild biapical emphysematous changes are again noted at the lung apices. There has been development of a moderate-sized pericardial effusion. There are a few shotty mediastinal lymph nodes that are essentially stable. There are calcified right hilar lymph nodes indicating prior granulomatous disease. There is patchy aortic and coronary artery atherosclerotic calcification. Review of the upper abdomen reveals trace ascites tracking around the liver. The upper abdomen is essentially stable, otherwise as compared to the previous study. IMPRESSION: 1. Development of moderate to large size pleural effusions with associated atelectasis. 2. Development of a moderate-sized pericardial effusion. 3. Development of trace fluid tracking around the liver. 4. Otherwise, the chest is essentially stable as compared to the previous study performed last month.
[2017-02-02] MEDS: PROTONIX IV SCH (14:44)
[2017-02-02] MEDS: SODIUM CHLORIDE 0.9% INJ SCH (14:44)
[2017-02-02] MEDS: SOLU-MEDROL IV SCH ×2 (14:45→19:58)
[2017-02-02] MEDS: LOVENOX SUBQ SCH (14:45)
[2017-02-02] MEDS: NORVASC PO SCH (19:59)
[2017-02-03] MEDS: DUONEB (A & A) INH SCH ×6 (02:55→22:54)
[2017-02-03] MEDS: SOLU-MEDROL IV SCH ×3 (03:56→20:05)
[2017-02-03] MEDS: LEVAQUIN 500 MG/D5W 500 MG/100 ML IVPB IV SCH (04:00)
[2017-02-03 04:31] LABS: ALLEN TEST YES; BE 18.6 mmoll (-3.0-3.0); BLOOD TYPE ARTERIAL; DRAW SITE R RADIAL; METHB 1.1 % (0.0-1.5); O2(CT) 15.1 mL/dL (15.0-23.0); PO2(98.6) 73 mmHg (60-100); SAMPLE BLOOD; SAO2 99.2 % (95.0-100.0); THB 11.3 g/dL (11.5-17.4); pH(98.6) 7.46 (7.35-7.45)
[2017-02-03 04:33] LABS: MODALITY CANNULA
[2017-02-03 04:34] LABS: PCO2(98.6) 64 mmHg (35-45)
[2017-02-03 05:49] LABS: HEMATOCRIT 33.5 % (37.0-47.0); HEMOGLOBIN 11.2 g/dL (12.0-16.0); IMM GRAN# 0.02 X1000 (0.0-0.04); IMM GRAN% 0.2 % (0.0-0.5); LYMPH# 0.36 X1000 (1.2-3.4); LYMPH% 4.3 % (20.5-51.1); MANUAL DIFF NEEDED? YES; MCH 29.2 PG (27-31); MCHC 33.4 g/dL (33-37); MCV 87.2 FL (81-99); MONO# 0.29 X1000 (0.11-0.59); MONO% 3.5 % (1.7-9.3); MPV 8.8 FL (7.4-10.4); PLT 388 X1000 (130-400); RBC 3.84 XMIL (4.2-5.4)
[2017-02-03 06:01] LABS: AGAP 9; BUN 23 mg/dL (8-22); CALCIUM 8.9 mg/dL (8.8-10.2); CHLORIDE 85 mmol/L (98-107); COSMO 271; POTASSIUM 4.8 mmol/L (3.5-5.1); SODIUM 132 mmol/L (136-145); TCO2 38 mmol/L (25-35)
[2017-02-03] MEDS: SYNTHROID PO SCH (06:20)
[2017-02-03 06:43] LABS: LYMPHS 10 % (21-51); MONO 2 % (1-9)
--- NOTE | 2017-02-03 07:27 | Diag Imaging Result Document ---
PROCEDURE NAME: CHEST-1 VIEW - 02/03/2017 PORTABLE CHEST: COMPARISON: Compared to 02/02/2017. FINDINGS: The lungs are well expanded. There are at least small bilateral pleural effusions and there is basilar atelectasis. The heart remains borderline mildly prominent. The lung apices remain clear. The overall appearance is similar to that of the prior exam. IMPRESSION: Stable chest.
[2017-02-03] MEDS: SPIRIVA INH SCH (07:36)
[2017-02-03] MEDS: NORVASC PO SCH ×2 (08:38→20:04)
[2017-02-03] MEDS: SODIUM CHLORIDE 0.9% INJ SCH (11:12)
[2017-02-03] MEDS: LOVENOX SUBQ SCH (11:13)
[2017-02-03] MEDS: PROTONIX IV SCH (11:22)
[2017-02-03] MEDS: ULTRAM PO PRN (20:04)
--- NOTE | 2017-02-03 20:41 | PROGRESS NOTE ---
DATE: 02/03/2017 SUBJECTIVE: The patient is more awake and alert today. She states that she feels a lot better. She states that her shortness of breath is a little bit better. OBJECTIVE: Vital Signs: Temperature 97.5 degrees, blood pressure 125/73, heart rate 83, respirations 16, O2 saturations 95% on 4 L nasal cannula. General: This is a chronically ill- appearing, elderly female, lying in bed, in no acute distress. Head: Normocephalic, atraumatic. Heart: S1, S2. Normal. Regular rate and rhythm. Lungs: Diminished air entry bilaterally. No crackles. No rales. No wheezing. Abdomen: Positive bowel sounds. Soft, nontender, nondistended. Extremities: No edema. No cyanosis. No calf tenderness. Neurologic: The patient is alert and oriented x3. No focal neurologic deficits noted. LABORATORY: White blood cell count 8.3, hemoglobin 11, hematocrit 33, platelets 388,000. Sodium 132, potassium 4.8, chloride 85, CO2 38, BUN 23, creatinine 0.8, glucose 154. ASSESSMENT AND PLAN: 1. Acute chronic obstructive pulmonary disease exacerbation. Continue on IV antibiotics with supplemental oxygen, IV steroids and bronchodilator therapy. Pulmonary is following. 2. Bilateral pleural effusions. We will continue to monitor this closely. 3. Pericardial effusion. A 2-dimensional echocardiogram has been ordered. We will also consult Cardiology. 4. Hypothyroidism. Continue on Synthroid. 5. Hypertension. Continue on Norvasc. 6. Deep vein thrombosis prophylaxis. Continue on Lovenox. cc: Sabirna Cruz MD
[2017-02-04] MEDS: DUONEB (A & A) INH SCH ×6 (03:16→22:54)
[2017-02-04 04:04] LABS: ALLEN TEST YES; BE 17.3 mmoll (-3.0-3.0); BLOOD TYPE ARTERIAL; DRAW SITE R RADIAL; METHB 1.6 % (0.0-1.5); O2(CT) 16.8 mL/dL (15.0-23.0); PO2(98.6) 79 mmHg (60-100); SAMPLE BLOOD; SAO2 98.5 % (95.0-100.0); THB 12.6 g/dL (11.5-17.4); pH(98.6) 7.45 (7.35-7.45)
[2017-02-04 04:05] LABS: MODALITY CANNULA
[2017-02-04 04:06] LABS: PCO2(98.6) 64 mmHg (35-45)
--- NOTE | 2017-02-04 04:20 | ECHO REPORT ---
ORDER DATE: 02/02/2017 INTERPRETING PHYSICIAN: Dr. Alvarado REQUESTING PHYSICIAN: CLINICAL INDICATIONS: A 71-year-old female with pericardial effusion. The patient had a CT scan of the chest showing pericardial effusion. SUMMARY OF 2-DIMENSIONAL IMAGING: There is a moderate to large pericardial effusion. The largest diameter in the AP projection is 1.9 cm. This is significant. There is no definite indication of tamponade, however, it is very difficult to sort it out on this study because M-Mode was not carried out. The left ventricle seems to have normal function. The inferior vena cava is somewhat prominent, measuring up to 2.2 cm, suggesting that the right atrial pressure is elevated. The mitral valve appears to be grossly normal as well as the tricuspid valve. There is some irregular echogenic material layering the anterior wall of the heart. IMPRESSION: In summary, this limited echocardiographic study reveals the presence of a potentially large pericardial effusion. No definite indication of tamponade is present, however, the study is really suboptimal for evaluation of tamponade. Clinical correlation is strongly recommended. cc: MD Sabrina Glynn MD
[2017-02-04] MEDS: SOLU-MEDROL IV SCH ×3 (04:31→20:33)
[2017-02-04] MEDS: LEVAQUIN 500 MG/D5W 500 MG/100 ML IVPB IV SCH (04:32)
[2017-02-04] MEDS: ULTRAM PO PRN ×2 (04:32→20:33)
[2017-02-04 04:38] LABS: HEMATOCRIT 32.4 % (37.0-47.0); HEMOGLOBIN 10.7 g/dL (12.0-16.0); MCH 28.8 PG (27-31); MCV 87.1 FL (81-99); MPV 8.7 FL (7.4-10.4); RBC 3.72 XMIL (4.2-5.4)
[2017-02-04 06:03] LABS: AGAP 9; BUN 19 mg/dL (8-22); CALCIUM 8.6 mg/dL (8.8-10.2); CHLORIDE 84 mmol/L (98-107); COSMO 265; POTASSIUM 4.2 mmol/L (3.5-5.1); SODIUM 131 mmol/L (136-145); TCO2 38 mmol/L (25-35)
[2017-02-04] MEDS: SYNTHROID PO SCH (06:29)
[2017-02-04] MEDS: SPIRIVA INH SCH (07:45)
--- NOTE | 2017-02-04 07:46 | Diag Imaging Result Document ---
PROCEDURE NAME: CHEST-1 VIEW - 02/04/2017 SINGLE FRONTAL RADIOGRAPH OF THE CHEST: COMPARISON: 02/03/2017. FINDINGS: Bilateral pleural effusions that are moderate in size appear to have worsened slightly. There is adjacent atelectasis and/or infiltrate at both lung bases that is slightly more prominent than the previous study. Otherwise, no new consolidation is identified. Cardiac silhouette is stable. IMPRESSION: Increased pleural effusions with mild worsening of atelectasis and/or infiltrate at the lung bases.
[2017-02-04] MEDS: NORVASC PO SCH ×2 (08:17→20:34)
[2017-02-04] MEDS ORDERED: LASIX IV ONE (10:18)
[2017-02-04] MEDS ORDERED: SAMSCA PO ONE (10:19)
[2017-02-04] MEDS: SODIUM CHLORIDE 0.9% INJ SCH (10:29)
[2017-02-04] MEDS: PROTONIX IV SCH (10:29)
[2017-02-04] MEDS: LOVENOX SUBQ SCH (10:30)
[2017-02-04 10:51] LABS: INR 0.98; PROTIME 10.3 Seconds (9.2-11.7); PTT 24.6 Seconds (22.0-36.0)
--- NOTE | 2017-02-04 13:22 | ECHO REPORT ---
ORDER DATE: 02/04/2017 SUMMARY: 1. Limited color Doppler and two-dimensional echocardiogram performed for followup of pericardial effusion. 2. Aortic, mitral, tricuspid, and pulmonic valves are without structural abnormality, with trace tricuspid regurgitation. The estimated systolic PA pressure by Doppler is approximately 45 to 50 mmHg. The aortic root is normal in size. 3. Normal left ventricular dimensions suggested. Estimated left ventricular ejection fraction is approximately 65%. No regional wall motion abnormalities are evident. Left atrium, right atrium, and right ventricle are normal in size, with grossly preserved right ventricular systolic performance. 4. Small circumferential pericardial effusion demonstrated. 5. Appearance of inferior vena cava suggests normal central venous pressure. CONCLUSIONS: 1. Flcl-uy-ajxcatse pulmonary hypertension. 2. Estimated left ventricular ejection fraction is 65%. 3. Small circumferential pericardial effusion. cc: MD Camelia Del Rosario PA
--- NOTE | 2017-02-04 14:51 | PROGRESS NOTE ---
DATE: 02/04/2017 SUBJECTIVE: The patient is sitting up, eating breakfast. She has no complaints at this time. OBJECTIVE: Vital Signs: Temperature 97.2 degrees, blood pressure 158/76, heart rate 82, respirations 12, O2 saturations 96% on 4 L nasal cannula. General: This is an elderly female, lying in bed, in no acute distress. Head: Normocephalic. Atraumatic. Heart: S1, S2. Normal. Regular rate and rhythm. Lungs: Equal air entry bilaterally, no crackles. No rales. Abdomen: Positive bowel sounds. Soft, nontender, nondistended. Extremities: No edema. No cyanosis. No calf tenderness. Neurologic: The patient is alert and oriented x3. LABORATORY DATA: White blood cell count 1,3 hemoglobin 10, hematocrit 32, platelets 403,000. Sodium 131, potassium 4.2, chloride 84, CO2 38, BUN 19, creatinine 0.6, glucose 104 5. ASSESSMENT AND PLAN: 1. Acute chronic obstructive pulmonary disease exacerbation. Slowly improving. We will decrease the patient's Solu-Medrol dosage. Continue on supplemental oxygen and bronchodilator therapy. 2. Bilateral pleural effusions. Stable. 3. Small pericardial effusion. Stable. 4. Hypothyroidism. Continue on Synthroid. 5. Hypertension. Continue on Norvasc. 6. Deep vein thrombosis prophylaxis. Continue on Lovenox. 7. The patient is stable for transfer to the medical floor. 8. We will also consult physical therapy. cc: Sabrina Cruz MD
--- NOTE | 2017-02-04 15:48 | CONSULTATION ---
DATE OF CONSULTATION: 02/04/2017 REASON FOR CONSULTATION: Evaluation of pericardial effusion. HISTORY OF PRESENT ILLNESS: A 71-year-old female admitted to the hospital on 02/02/2017 from the shelter because of increasing dyspnea. The patient had been in the hospital between 01/08/2017 and 01/16/2017 after suffering a fall and fracturing her pelvic bone. At that time she was seen by the orthopaedic international travel consultant. They noted that she had CO2 retention and severe COPD. She also had metabolic encephalopathy and a left upper lobe pneumonia. She was treated and improved. She was sent to the shelter and at the shelter she has continued to have complaints of increasing dyspnea and that is the reason why they put her in the hospital again. At the time of admission they did a CT of the chest that shows a pericardial effusion that appears to be moderate and pleural effusions. They did an echocardiogram on 02/02/2017 that was of poor quality and tamponade could not be excluded. I notified the attending physician who in turn requested a cardiology consultation. The patient states that since admission she has improved as far as her breathing. She has been put on steroids. She was given oxygen. She was on a BiPAP system. She is much better. She is not having any chest pain. She is fully awake and alert although she is obviously having difficulty breathing. She is tachypneic. PAST MEDICAL HISTORY: Her past history is positive for hypertension, COPD, and hypothyroidism. PAST SURGICAL HISTORY: She has had sections. ALLERGIES: Negative. HOME MEDICATIONS: Her home medications at the time of the present admission included: Verapamil 240 mg twice a day, ipratropium daily, levothyroxine 25 mcg daily, clonazepam 0.5 three times a day, and amlodipine 5 mg twice a day. SOCIAL HISTORY: . smoker x 40 yrs. quit at the time of recent Hospital admission.Lives by herself. REVIEW OF SYSTEMS: She is chronically short of breath. Poor functional capacity. She has been in a shelter recuperating from a ischial bone fracture. She has no history of coronary artery disease. Of note, her CT scan of the chest shows extensive coronary calcification. PHYSICAL EXAMINATION: VITAL SIGNS: Today her blood pressure is 124/73, temperature 97.2, pulse 75, and respirations 10. GENERAL: She is awake, alert, chronically ill, and somewhat pale. HEENT: Unremarkable. CHEST: Markedly diminished breath sounds. She has an emphysematous thorax. Hyperresonant to percussion. CARDIOVASCULAR: Heart sounds are distant, regular and rhythmic. No gallop or murmur. ABDOMEN: The abdomen is nontender and soft. EXTREMITIES: The extremities show decreased pulses. No obvious edema. NEUROLOGICAL: Follows commands and can move all four extremities. LABORATORY DATA: Blood work shows a sodium of 131, potassium 4.2, BUN 19, and creatinine 0.6. White count is 13,460, hemoglobin 10.7, and hematocrit 32.4. Blood gases on admission revealed a pH 7.54 and pCO2 54. Today pCO2 is 64, pH 7.45, and pO2 79. As I said echocardiogram showed a moderate pericardial effusion. Today we have repeated the echocardiogram at the bedside. There is a [id number] pericardial effusion, however, there is no echocardiographic indication of tamponade. IMPRESSION: 1.Patient presenting with exacerbation of chronic obstructive pulmonary disease with pleural effusions and also a moderate pericardial effusion. That may signify either a parapneumonic effusion from the recent pneumonia or fluid overload although at the time of this admission her pro BNP was normal at 302 pg/ml. The patient has advanced chronic obstructive pulmonary disease. She has been a long-term smoker of one pack a day for 40 years. 2. Calcification of coronary arteries: noted on CT scan of chest. she has no indication of acute WA on 12 lead ECG. 3. History of hypertension. 4. history of hypothyroidism. RECOMMENDATIONS: At this point in time I would suggest to give her Lasix. We will give her also tolvaptan to correct the hyponatremia. We will see how she does. Further advice will be forthcoming. Thank you for the opportunity to participate in her evaluation. Best regards. cc: Óscar Alvarado MD [facility]
[2017-02-05 01:29] LABS: URINE CULTURE NEEDED? NO; URINE MICRO REVIEW NEEDED? NO; URINE SOURCE CATH
[2017-02-05 02:49] LABS: BILIRUBIN URINE NEGATIVE (NEGATIVE); BLOOD URINE NEGATIVE (NEGATIVE); COLOR STRAW; GLUCOSE URINE NEGATIVE (NEGATIVE); LEUKOCYTES URINE NEGATIVE (NEGATIVE); NITRITE URINE NEGATIVE (NEGATIVE); PH URINE 6.5; PROTEIN URINE NEGATIVE (NEGATIVE); SP GRAVITY URINE 1.005; TURBIDITY URINE CLEAR (CLEAR); UROBILINOGEN URINE NORMAL (NORMAL)
[2017-02-05 02:50] LABS: UR EPITHELIAL CELLS <10 /HPF (<10); URINE BACTERIA NEGATIVE /HPF; URINE RBC <10 /HPF (<10); URINE WBC <10 /HPF (<10)
[2017-02-05] MEDS: DUONEB (A & A) INH SCH ×5 (03:01→22:49)
[2017-02-05 04:30] LABS: ALLEN TEST YES; BE 21.6 mmoll (-3.0-3.0); BLOOD TYPE ARTERIAL; DRAW SITE R RADIAL; METHB 1.9 % (0.0-1.5); O2(CT) 14.1 mL/dL (15.0-23.0); PO2(98.6) 62 mmHg (60-100); SAMPLE BLOOD; SAO2 95.8 % (95.0-100.0); THB 10.8 g/dL (11.5-17.4); pH(98.6) 7.48 (7.35-7.45)
[2017-02-05 04:32] LABS: MODALITY CANNULA; PCO2(98.6) 65 mmHg (35-45)
[2017-02-05] MEDS: LEVAQUIN 500 MG/D5W 500 MG/100 ML IVPB IV SCH (05:55)
[2017-02-05] MEDS: SYNTHROID PO SCH (06:08)
[2017-02-05 06:30] LABS: AGAP 11; BUN 18 mg/dL (8-22); CALCIUM 8.8 mg/dL (8.8-10.2); CHLORIDE 88 mmol/L (98-107); COSMO 276; POTASSIUM 4.1 mmol/L (3.5-5.1); SODIUM 137 mmol/L (136-145); TCO2 38 mmol/L (25-35)
[2017-02-05] MEDS: SPIRIVA INH SCH (07:31)
[2017-02-05] MEDS ORDERED: LASIX IV ONE (08:12)
--- NOTE | 2017-02-05 08:18 | Diag Imaging Result Document ---
PROCEDURE NAME: CHEST-1 VIEW - 02/05/2017 SINGLE FRONTAL RADIOGRAPH OF THE CHEST: COMPARISON: 02/04/2017. FINDINGS: Bibasilar pleural effusions are approximately stable given differences in inspiration. There is stable adjacent atelectasis and/or infiltrate. No new consolidations identified. Cardiac silhouette is stable. IMPRESSION: Essentially stable chest.
[2017-02-05] MEDS: SOLU-MEDROL IV SCH ×2 (08:32→21:22)
[2017-02-05] MEDS: NORVASC PO SCH ×2 (08:33→21:21)
--- NOTE | 2017-02-05 10:14 | PROGRESS NOTE ---
DATE: 02/05/2017 CHIEF COMPLAINT: Shortness of breath, abnormal CT scan of chest/ echocardiogram. SUBJECTIVE: Mrs. Singh is still very short of breath; however, her chest x-ray today looks better. It shows less infiltration. OBJECTIVE: Vital signs: Temperature 97.2, pulse 98, respirations 23, blood pressure 131/77. General: She is awake, alert, oriented, in no distress. HEENT: Unremarkable. Chest: Diffusely diminished breath sounds. Occasional rhonchi. Heart: Heart sounds are regular rhythmic, tachycardic. No gallop or murmur is noted. Abdomen: Nontender. Extremities: No edema. Neurological exam: Moves all 4 extremities. Follows commands. DATA: Blood gases: pH 7.48, pCO2 65, pO2 62; this is on 4 L nasal cannula. Sodium 137, potassium 4.1, BUN is 18, creatinine is 0.6. IMPRESSION: 1. Patient who has exacerbation of chronic obstructive pulmonary disease which is severe. 2. Patient has pericardial and pleural effusions. These may be parapneumonic effusions related to the recent pneumonic process that brought her to the hospital. 3. Long-term tobacco user. 4. Coronary artery disease, coronary artery calcification. 5. History of hypertension. 6. Hyponatremia which has been corrected. 7. Possible state of fluid overload: suggested by clearing of abnormal Chest X Ray post diuretics. RECOMMENDATIONS: At this point in time, we will continue with present therapy. Of note, her C- reactive protein and her Sed rate were normal. That indicates that she has no active systemic inflammation. We may give her an extra dose of Lasix today to try to get her into a more euvolemic state. Hopefully, she will continue to improve. Thank you for the opportunity to participate in her evaluation. cc: Óscar Alvarado MD [facility]
[2017-02-05] MEDS: ULTRAM PO PRN ×2 (10:46→17:58)
[2017-02-05] MEDS: LOVENOX SUBQ SCH (10:47)
--- NOTE | 2017-02-05 12:11 | PROGRESS NOTE ---
DATE: 02/05/2017 SUBJECTIVE: The patient is resting comfortably in bed. She complains of constipation. OBJECTIVE: Vital Signs: Temperature 98 degrees, blood pressure 130/78, heart rate 95, respirations 16, O2 saturation is 94% on 3 L nasal cannula. General: This is a chronically ill- appearing, elderly female, lying in bed, in no acute distress. Head: Normocephalic, atraumatic. Heart: S1, S2. Normal. Regular rate and rhythm. Lungs: Equal air entry bilaterally. No crackles. No rales. Abdomen: Positive bowel sounds. Soft, nontender, nondistended. Extremities: No edema. No cyanosis. Neurological: Patient is alert and oriented x3. LABS: ABG, pH of 7.48, pCO2 65, PO2 62, bicarb 41. Sodium 137, potassium 4.1, chloride 88, CO2 38, BUN 18, creatinine 0.6, glucose 111. ASSESSMENT AND PLAN: 1. Acute chronic obstructive pulmonary disease exacerbation. Continue on IV Solu-Medrol, bronchodilator therapy, antibiotics, and supplemental oxygen. 2. Bilateral pleural effusions. Stable. 3. Small pericardial effusion. Stable. 4. Hypertension. Continue on Norvasc. 5. Constipation. Will start the patient on scheduled laxatives. 6. Hypothyroidism. Continue on Synthroid. 7. Continue with physical therapy. 8. The patient is stable for transfer to the medical floor. cc: Sabrina Cruz MD [facility]
[2017-02-05] MEDS: LACTULOSE PO SCH ×2 (13:17→21:21)
[2017-02-05] MEDS: PROTONIX IV SCH (13:18)
[2017-02-05] MEDS: COLACE PO SCH (21:22)
[2017-02-05] MEDS: DULCOLAX PR SCH (21:22)
[2017-02-06] MEDS: DUONEB (A & A) INH SCH ×6 (03:34→22:35)
[2017-02-06] MEDS: LEVAQUIN 500 MG/D5W 500 MG/100 ML IVPB IV SCH (05:18)
[2017-02-06] MEDS: ULTRAM PO PRN ×3 (05:44→22:00)
[2017-02-06] MEDS: SYNTHROID PO SCH (06:32)
[2017-02-06 07:03] LABS: AGAP 10; BUN 18 mg/dL (8-22); CHLORIDE 88 mmol/L (98-107); COSMO 276; POTASSIUM 3.6 mmol/L (3.5-5.1); SODIUM 137 mmol/L (136-145); TCO2 39 mmol/L (25-35)
[2017-02-06] MEDS: SPIRIVA INH SCH (08:07)
[2017-02-06] MEDS: LACTULOSE PO SCH ×2 (09:17→22:01)
[2017-02-06] MEDS: SOLU-MEDROL IV SCH ×2 (09:18→22:01)
[2017-02-06] MEDS: NORVASC PO SCH ×2 (09:18→22:01)
[2017-02-06] MEDS: COLACE PO SCH ×2 (09:18→22:01)
[2017-02-06] MEDS: PROTONIX IV SCH (11:59)
[2017-02-06] MEDS: LOVENOX SUBQ SCH (11:59)
--- NOTE | 2017-02-06 15:27 | PROGRESS NOTE ---
DATE: 02/06/2017 SUBJECTIVE: The patient is resting comfortably in bed. She has no complaints at this time. She still has not had a bowel movement despite receiving scheduled laxative therapy. OBJECTIVE: Vital Signs: Temperature 98.7 degrees, blood pressure 135/78, heart rate 86, respirations 19, O2 saturations 93% on 3 L nasal cannula. General: This is an elderly female, lying in bed in no acute distress. Head: Normocephalic, atraumatic. Heart : S1, S2. Normal. Regular rate and rhythm. Lungs: Clear to auscultation bilaterally. Abdomen: Positive bowel sounds. Soft, nontender, nondistended. Extremities: No edema. No cyanosis. No calf tenderness. Neurologic: The patient is alert and oriented x3. LABS: Sodium 137, potassium 3.6, chloride 88, CO2 39, BUN 18, creatinine 0.6, glucose 111, calcium 9. ASSESSMENT AND PLAN: 1. Acute chronic obstructive pulmonary disease exacerbation. Stable. Continue on steroids and bronchodilator therapy. 2. Constipation. Will order an enema after an abdominal x-ray has been done. 3. Bilateral pleural effusions. Stable. 4. Hypertension. Controlled. 5. Hypothyroidism. Continue on Synthroid. 6. Small pericardial effusion. Stable. DISPOSITION: Hopefully the patient will be stable for discharge to rehab on Thursday. cc: Sabrina Cruz MD [facility]
[2017-02-06] MEDS ORDERED: LASIX IV ONE (15:56)
[2017-02-06] MEDS ORDERED: LASIX IV SCH (16:00)
--- NOTE | 2017-02-06 20:15 | Diag Imaging Result Document ---
PROCEDURE NAME: ABDOMEN FLAT/UPRIGHT - 02/06/2017 FLAT AND UPRIGHT ABDOMEN AND PELVIS, 2 VIEWS: COMPARISON: None available. FINDINGS: There are nonspecific bowel gas patterns. There is what appears to be a combination of small bowel and colonic gas. There is only mild distention. There is a fair amount of stool in the descending and transverse colon which could indicate mild constipation. There is no evidence of large-volume free abdominal gas. There is no definite organomegaly. IMPRESSION: Nonspecific bowel gas patterns and suggestion of mild constipation.
[2017-02-06] MEDS: DULCOLAX PR SCH (22:01)
[2017-02-07] MEDS: DUONEB (A & A) INH SCH ×6 (03:49→22:38)
[2017-02-07] MEDS: LEVAQUIN 500 MG/D5W 500 MG/100 ML IVPB IV SCH (05:03)
[2017-02-07] MEDS: SYNTHROID PO SCH (06:02)
[2017-02-07 07:07] LABS: HEMATOCRIT 36.8 % (37.0-47.0); HEMOGLOBIN 11.9 g/dL (12.0-16.0); MCHC 32.3 g/dL (33-37); MCV 89.5 FL (81-99); RBC 4.11 XMIL (4.2-5.4)
[2017-02-07 07:40] LABS: AGAP 10; BUN 18 mg/dL (8-22); CALCIUM 8.6 mg/dL (8.8-10.2); CHLORIDE 86 mmol/L (98-107); COSMO 274; MAGNESIUM 1.6 mg/dL (1.5-2.7); POTASSIUM 3.4 mmol/L (3.5-5.1); SODIUM 136 mmol/L (136-145); TCO2 40 mmol/L (25-35)
[2017-02-07] MEDS: SPIRIVA INH SCH (08:00)
--- NOTE | 2017-02-07 08:48 | Diag Imaging Result Document ---
PROCEDURE NAME: CHEST-PORTABLE - 02/07/2017 SINGLE FRONTAL RADIOGRAPH OF THE CHEST: COMPARISON: 02/05/2017. FINDINGS: The infiltrates at the lung bases appear to have marginally improved. No new consolidations are identified. Cardiac silhouette is stable. IMPRESSION: Interval improvement.
[2017-02-07] MEDS: SOLU-MEDROL IV SCH ×2 (09:08→21:08)
[2017-02-07] MEDS: NORVASC PO SCH ×2 (09:08→21:10)
[2017-02-07] MEDS: LACTULOSE PO SCH ×2 (09:09→21:15)
[2017-02-07] MEDS: COLACE PO SCH ×2 (09:09→21:10)
[2017-02-07] MEDS: ULTRAM PO PRN ×3 (09:09→23:00)
[2017-02-07] MEDS ORDERED: KLOR-CON PO ONE (10:07)
[2017-02-07] MEDS ORDERED: MAGNESIUM SULFATE 2 GM/S.W.I. 2 GM/50 ML IVPB IV ONE (10:07)
[2017-02-07] MEDS: LOVENOX SUBQ SCH (10:16)
[2017-02-07] MEDS: PROTONIX IV SCH (10:16)
[2017-02-07] MEDS ORDERED: DULCOLAX PR ONE (13:19)
[2017-02-07] MEDS ORDERED: SORBITOL PO ONE (13:20)
--- NOTE | 2017-02-07 13:39 | PROGRESS NOTE ---
DATE: 02/07/2017 SUBJECTIVE: The patient is resting comfortably in bed. She has not had a bowel movement yet. OBJECTIVE: Vital Signs: Temperature 97.9 degrees, blood pressure 129/80, heart rate 86, respirations 17, O2 saturations 98% on 3 L nasal cannula. General: This is an elderly female lying in bed in no acute distress. Head: Normocephalic, atraumatic. Heart: S1, S2. Normal. Regular rate and rhythm. Lungs: Clear to auscultation bilaterally. Abdomen: Positive bowel sounds. Soft, nontender, nondistended. Extremities: No edema. No cyanosis. LABS: Reviewed. ASSESSMENT AND PLAN: 1. Acute chronic obstructive pulmonary disease exacerbation. Stable. Continue on steroids and bronchodilator therapy. 2. Constipation. Continue on scheduled laxative therapy. 3. Bilateral pleural effusions. Stable. 4. Hypertension. Controlled. 5. Hypothyroidism. Continue on Synthroid. 6. Small pericardial effusion. Stable. 7. Disposition. Hopefully the patient will be stable for discharge to rehab on Thursday. cc: Sabrina Cruz MD
[2017-02-07] MEDS: DULCOLAX PR SCH (21:11)
[2017-02-07] MEDS: MIRALAX PO SCH (21:12)
[2017-02-08] MEDS: DUONEB (A & A) INH SCH ×6 (03:52→23:16)
[2017-02-08] MEDS: LEVAQUIN 500 MG/D5W 500 MG/100 ML IVPB IV SCH (05:59)
[2017-02-08 06:37] LABS: AGAP 8; BUN 18 mg/dL (8-22); CALCIUM 8.8 mg/dL (8.8-10.2); CHLORIDE 85 mmol/L (98-107); COSMO 266; POTASSIUM 4.2 mmol/L (3.5-5.1); SODIUM 132 mmol/L (136-145); TCO2 39 mmol/L (25-35)
[2017-02-08] MEDS: SYNTHROID PO SCH (06:40)
[2017-02-08] MEDS: SOLU-MEDROL IV SCH (08:07)
[2017-02-08] MEDS: MIRALAX PO SCH ×3 (08:07→20:30)
[2017-02-08] MEDS: LACTULOSE PO SCH (08:09)
[2017-02-08] MEDS: ULTRAM PO PRN ×3 (08:09→22:09)
[2017-02-08] MEDS: COLACE PO SCH ×2 (08:09→20:29)
[2017-02-08] MEDS: NORVASC PO SCH ×2 (08:09→20:29)
[2017-02-08] MEDS: SPIRIVA INH SCH (08:24)
[2017-02-08] MEDS ORDERED: FLEET MINERAL OIL ENEMA PR ONE (09:41)
[2017-02-08] MEDS ORDERED: DULCOLAX PR ONE (09:58)
[2017-02-08] MEDS: NS 1,000 ML IV SCH ×2 (10:34→22:09)
[2017-02-08] MEDS: PROTONIX IV SCH (10:37)
[2017-02-08] MEDS: LOVENOX SUBQ SCH (10:37)
[2017-02-08] MEDS: SODIUM CHLORIDE 0.9% INJ SCH (10:37)
--- NOTE | 2017-02-08 15:27 | PROGRESS NOTE ---
DATE: 02/08/2017 SUBJECTIVE: The patient is resting comfortably in bed. The patient has not had a bowel movement at all since admission, and she has been refusing to take the scheduled laxatives that have been ordered. OBJECTIVE: Vital Signs: Temperature 98.2 degrees, blood pressure 130/78, heart rate 88, respirations 16, O2 saturations 94% on 3 L nasal cannula. General: This is a chronically ill- appearing, elderly female, lying in bed, in no acute distress. Head: Normocephalic, atraumatic. Heart: S1, S2. Normal. Regular rate and rhythm. Lungs: Equal air entry bilaterally. No crackles. No rales. No wheezing. Abdomen: Positive bowel sounds. Soft, nontender, nondistended. Extremities: No edema. No cyanosis. Neurologic: The patient is alert oriented x3. LABORATORY: Sodium 132, potassium 4.2, chloride 85, CO2 39, BUN 18, creatinine 0.5, glucose 92. ASSESSMENT AND PLAN: 1. Acute chronic obstructive pulmonary disease exacerbation. Stable. Continue with bronchodilator therapy and prednisone. 2. Constipation. I discussed with the patient the importance of taking the medications as prescribed. She stated that she would start taking the laxatives that were ordered. We will also give the patient an enema today. 3. Bilateral pleural effusions. Stable. 4. Hypertension. Controlled. 5. Small pericardial effusion. Stable. 6. Hypothyroidism. Continue on Synthroid. 7. Disposition. The patient should be stable for discharge to rehab tomorrow provided she has a bowel movement today. cc: Sabrina Cruz MD
[2017-02-08 18:26] LABS: URINE MICRO REVIEW NEEDED? NO; URINE SOURCE CATH
[2017-02-08 18:30] LABS: BILIRUBIN URINE NEGATIVE (NEGATIVE); BLOOD URINE NEGATIVE (NEGATIVE); COLOR YELLOW; GLUCOSE URINE NEGATIVE (NEGATIVE); LEUKOCYTES URINE NEGATIVE (NEGATIVE); NITRITE URINE NEGATIVE (NEGATIVE); PROTEIN URINE NEGATIVE (NEGATIVE); SP GRAVITY URINE 1.012; TURBIDITY URINE HAZY (CLEAR); UROBILINOGEN URINE NORMAL (NORMAL)
[2017-02-08 18:33] LABS: UR EPITHELIAL CELLS <10 /HPF (<10); URINE BACTERIA NEGATIVE /HPF; URINE RBC <10 /HPF (<10); URINE WBC <10 /HPF (<10)
[2017-02-08] MEDS: DULCOLAX PR SCH (20:30)
[2017-02-09] MEDS: DUONEB (A & A) INH SCH ×6 (03:01→23:20)
--- NOTE | 2017-02-09 06:02 | EKG Report ---
Test Performed on : 02/07/2017 07:00:10 AM Test Reason : dyspnea Blood Pressure : / mmHG Vent. Rate : 084 BPM Atrial Rate : 084 BPM P-R Int : 132 ms QRS Dur : 080 ms QT Int : 316 ms P-R-T Axes : 055 -32 089 degrees QTc Int : 373 ms Sinus rhythm. with occasional premature ventricular complexes. Left axis deviation Anteroseptal infarct (cited on or before 08-JAN-2017) Abnormal ECG When compared with ECG of 02-FEB-2017 03:04, premature ventricular complexes. are now present QT has shortened Confirmed by Dulce GARZON, Pedro Hairston ([id number]) on 02/09/2017 11:21:28 AM
[2017-02-09] MEDS: SYNTHROID PO SCH (06:33)
[2017-02-09 07:34] LABS: HEMATOCRIT 37.9 % (37.0-47.0); HEMOGLOBIN 12.6 g/dL (12.0-16.0); MCH 28.5 PG (27-31); MCHC 33.2 g/dL (33-37); MCV 85.7 FL (81-99); RBC 4.42 XMIL (4.2-5.4)
[2017-02-09] MEDS: SPIRIVA INH SCH (07:45)
[2017-02-09 07:54] LABS: AGAP 11; BUN 10 mg/dL (8-22); CALCIUM 8.4 mg/dL (8.8-10.2); CHLORIDE 87 mmol/L (98-107); COSMO 260; POTASSIUM 3.1 mmol/L (3.5-5.1); SODIUM 131 mmol/L (136-145); TCO2 33 mmol/L (25-35)
[2017-02-09] MEDS: NORVASC PO SCH ×2 (09:07→20:56)
[2017-02-09] MEDS: MIRALAX PO SCH ×2 (09:07→20:58)
[2017-02-09] MEDS: PREDNISONE PO SCH (09:07)
[2017-02-09] MEDS: COLACE PO SCH ×2 (09:07→20:59)
[2017-02-09] MEDS: ULTRAM PO PRN ×3 (09:12→21:00)
[2017-02-09] MEDS ORDERED: KLOR-CON PO ONE (09:21)
[2017-02-09] MEDS: PROTONIX IV SCH (11:11)
[2017-02-09] MEDS: LOVENOX SUBQ SCH (11:11)
--- NOTE | 2017-02-09 15:44 | PROGRESS NOTE ---
DATE: 02/09/2017 SUBJECTIVE: Patient is resting comfortably in bed. No complaints. OBJECTIVE: Vital signs: Temperature 99.5 degrees, heart rate 78, respirations 16, blood pressure 137/83, O2 is 93% on 2 L nasal cannula. General: Ms. Singh is a chronically ill appearing, 71- year-old female, sitting up in bed, in no acute distress. HEENT: Atraumatic, normocephalic. PERRLA. Neck: Supple. Trachea midline. CARDIOVASCULAR: Regular rate and rhythm. Pulmonary: Bilateral breath sounds. Clear to consultation all lung galan. Abdomen: Soft, nontender, nondistended. Positive bowel sounds 4 quadrants. Extremities: Negative for edema. No cyanosis or clubbing noted. Neurological: The patient is awake, alert, and oriented x3. LABORATORY DATA: White count 10, hemoglobin 12, hematocrit 37, platelet count 391,000. Sodium is 131, potassium 3.1, BUN 10, creatinine 0.3, blood glucose 71. ASSESSMENT AND PLAN: 1. Chronic obstructive pulmonary disease exacerbation. Stable. Continue with bronchodilator therapy and prednisone as well as aggressive pulmonary toilet. 2. Constipation. The patient was started on laxatives as well as given an enema yesterday with 1 stool. 3. Bilateral pleural effusions. Stable. 4. Hypertension, controlled. 5. Small pericardial effusion. Stable. 6. Hypothyroidism. Chronic and stable. 7. Physical deconditioning. The patient has worked with physical therapy. Patient did come from [facility]. She was not a long-term resident. Initially refusing to go back to rehab; however, we have spoken with the brother who states that the patient is unable to live by herself. The patient does have [employer]. We plan a request for professor of social work as well as rehab placement. 8. Urinary retention. The patient will be discharged to rehab with a [facility] once we have approval. 9. Hypokalemia. The patient was given a dose of p.o. potassium. We will recheck in the a.m. 10. Disposition is pending rehab placement. Dictated by KOJO Wallace for Gerson Santana MD cc: Gerson Santana MD pt examined, agree with above APENOT [facility]TD[facility]
[2017-02-09] MEDS: DULCOLAX PR SCH (20:59)
[2017-02-10] MEDS: DUONEB (A & A) INH SCH ×4 (03:07→15:42)
[2017-02-10] MEDS: SYNTHROID PO SCH (06:28)
[2017-02-10] MEDS: ULTRAM PO PRN ×2 (06:30→14:29)
[2017-02-10 07:10] LABS: AGAP 7; BUN 12 mg/dL (8-22); CALCIUM 8.5 mg/dL (8.8-10.2); CHLORIDE 90 mmol/L (98-107); COSMO 260; POTASSIUM 3.8 mmol/L (3.5-5.1); SODIUM 131 mmol/L (136-145); TCO2 34 mmol/L (25-35)
[2017-02-10] MEDS: SPIRIVA INH SCH (08:06)
[2017-02-10] MEDS: COLACE PO SCH (08:40)
[2017-02-10] MEDS: MIRALAX PO SCH (08:41)
[2017-02-10] MEDS: PREDNISONE PO SCH (08:43)
[2017-02-10] MEDS: NORVASC PO SCH (08:43)
[2017-02-10] MEDS: LOVENOX SUBQ SCH (11:32)
[2017-02-10] MEDS: PROTONIX IV SCH (11:32)
[2017-02-10 14:21] VITALS: BP 138/88
--- NOTE | 2017-02-10 16:16 | DISCHARGE SUMMARY ---
ADMISSION DATE: 02/02/2017 DISCHARGE DATE: 02/10/2017 DISCHARGE DIAGNOSES: 1. Chronic obstructive pulmonary disease exacerbation. 2. Pericardial pleural effusion. 3. Coronary artery disease. 4. Hyponatremia. 5. Persistent tobacco abuse. 6. Moderate protein calorie malnutrition. 7. Chronic constipation. ADMISSION DIAGNOSES: 1. Acute hypercapnic respiratory failure. 2. Chronic obstructive pulmonary disease exacerbation on chronic oxygen. 3. Hypertension. CONSULTATIONS: 1. Dr. Mcneill, Pulmonary. 2. Consultation Cardiology Dr. Alvarado. PROCEDURES/IMAGIN. Chest CT with moderate to large pleural effusion. Moderate-sized pericardial effusion. 2. Echocardiogram limited showing potentially large pleural effusion. The patient was admitted. She was placed on nebulizer treatments, breathing treatments and clinically improved. She had been at [facility] previously. Chest x-ray on the showed small pleural bilateral pleural effusions improved after diuresis and. The Solu-Medrol was slowly decreased. She ended up being transferred to the floor. Clinically she had stabilized. Sedimentation rate and CRP were normal. Did not feel that there was systemic inflammation. Lasix was adjusted. She was slowly improved. Chest x-ray on the showed interval improvement without new consolidations. Plans were made to transfer her back to rehab. Recommended taking medications for her chronic constipation. On the she was stable and felt stable for discharge. Initially she refused to go to rehab but her family convinced her there was no one to take care of her at home and she was too weak to handle her care at home on her own. Her vital signs were stable. Saturations were 99% on 2 L. She had no white count, 10,000. Sodium was around 131, which had been stable for the last 3 days. DISCHARGE CONDITION: Stable. DISCHARGE MEDICATIONS: As follows: DuoNeb q.6, Norvasc 5 b.i.d., Dulcolax 10 at bedtime, Colace 100 b.i.d., Synthroid 25 daily, MiraLAX 17 b.i.d., prednisone taper, Spiriva 1 puff daily, Ultram 50 q.6 p.r.n. pain. DISCHARGE CONDITION: Is stable. Follow up with Dr. Mcneill once she completes rehab. 32 minute discharge. cc: MD Lucy Frazier MD Dr. Powell
== END 2017-02-10 17:58 ==
LOC: ED 03:01 → EDIPHOLD 05:25 → SUATTDRO 05:25 → ICU 13:18 → 3N 02-05 10:15
PROVIDERS: ATTEND Internal Medicine